=== PATIENT | male | born 1955 | race Caucasian/White ===

== ENCOUNTER 2017-02-03 12:47 | Inpatient (IN) | payer OTHER ==
[~2017-02-03] VITALS: Ht 185.4 cm; Wt 149.7 kg
[~2017-02-03 12:47] MED LIST: AUGMENTIN 875-1 EACH PO; COLCHICINE0.6 M2 PO; CRESTOR20 M2 PO; GLUCOPHAGE500 M1 PO; METOPROLOL TART50 M1 PO; NORCO 5-325 TA1 EACH PO; PERCOCET 5-3251 EACH PO; PREDNISONE20 M1 PO; VIBRAMYCIN100 MG PO; VICODIN 5-3001 EACH PO; XARELTO20 M2 PO
--- NOTE | 2017-02-03 12:51 | ED DYSPNEA/ASTHMA COMPLAINT ---
History of Present Illness General Chief Complaint: Dyspnea (COPD, CHF, Other) Stated Complaint: BIBA FOR SOB,WHEEZING Source: patient, family Exam Limitations: no limitations Vital Signs & Intake/Output Vital Signs & Intake/Output Vital Signs Date Time Temp Pulse Resp B/P B/P Pulse O2 O2 Flow FiO2 Mean Ox Delivery Rate 02/03 1412 73 22 184/119 97 BIPAP 30% 02/03 1358 75 98 02/03 1331 98 Nasal 3.0L Cannula 02/03 1257 96 Nasal 3.0L Cannula 02/03 1250 97.0 79 20 172/74 95 Nasal 3.0L Cannula Allergies Coded Allergies: No Known Allergies (01/15/16) Reconcile Medications Albuterol Sulfate (Proair Hfa) 90 MCG HFA.AER.AD 2 PUF INH Q4P PRN SHORTNESS OF BREATH (Reported) Colchicine 0.6 MG TABLET 1 TAB PO Q6-PRN PRN GOUT (Reported) Diltiazem HCl (Diltiazem 24HR ER) 240 MG CAP.ER.24H 1 CAP PO DAILY HEART ( Reported) Furosemide 20 MG TABLET 60 MG PO 7:30 AM, & 4:30 PM swelling Gabapentin 100 MG CAPSULE 2 CAP PO BID UNKNOWN (Reported) Guaifenesin 100 MG/5 ML LIQUID 10 ML PO Q4P PRN COUGH Lisinopril 20 MG TABLET 20 MG PO DAILY high blood pressure Metformin Hydochloride (Glucophage) 500 MG TABLET 1 TAB PO BID DIABETES ( Reported) Metoprolol Succinate 50 MG TAB.ER.24H 1 TAB PO DAILY HEART (Reported) Oxycodone HCl/Acetaminophen (Oxycodone-Acetaminophen 10-325) 10 MG-325 MG TABLET 1 TAB PO Q4P PRN PAIN (Reported) Prednisone 10 MG TABLET 1 TAB PO SEE ADMIN CRITERIA RESPIRATORY TAKE 4 TABLETS FOR 2 DAYS THEN 3 TABLEST FOR 3 DAYS THEN 2 TABLET FOR 3 DAYS THEN 1 TABLET FOR 3 DAYS, THEN STOP Rivaroxaban (Xarelto) 20 MG TABLET 1 TAB PO DAILY BLOOD THINNER (Reported) with food Rosuvastatin Calcium (Crestor) 20 MG TABLET 1 TAB PO DAILY CHOLESTEROL ( Reported) Sodium Chloride (Deep Sea) 0.65 % SPRAY 2 SPRAY MAURO Q4P PRN CONGESTION Triage Nurses Notes Reviewed? yes Onset: Gradual Duration: week(s): (1-2) Timing: recent history Severity: moderate, severe Associated Symptoms: LETHARGY, DYSPNEA, MUMBLED SPEECH HPI: 61 year old male with history of obesity, DM, HTN and afib presents from his doctor's office with his sister for difficulty breathing and wheezing. He was found to have an oxygen saturation in the low 80's. Patient deneis chest pain. His family reports increasing fatigue over the past several weeks, often nodding off very easily as well as a change in his speech. He has been non compliant with lasix because he feels too short of breath to get out of bed in the middle of jerilyn night to use the bathroom. Secondary to this he has also not followed up with his outpatient sleep testing. He was treated for pneumonia a month ago with a zpack and prednisone which he states did not really help. Past History Travel History Traveled to [place] past 21 day No Medical History Any Pertinent Medical History? see below for history Neurological: NONE EENT: NONE Cardiovascular: AFIB, hypertension, hyperlipidemia Respiratory: NONE Gastrointestinal: NONE Hepatic: NONE Renal: NONE Musculoskeletal: NONE Psychiatric: NONE Endocrine: DIABETIC Blood Disorders: NONE Cancer(s): NONE CHARGING OPERATOR/Reproductive: NONE Surgical History Surgical History: HARDWARE IN BOTH HIPS Psychosocial History What is your primary language Amharic Daily Tobacco Use Amount/Type: => 5 Cigarettes daily ETOH Use: denies use Illicit Drug Use: denies illicit drug use Family History Hx Contributory? No Review of Systems Review of Systems Constitutional: Denies: chills, fever. EENTM: Reports: no symptoms. Respiratory: Reports: cough, short of breath. Cardiovascular: Reports: peripheral edema. Denies: chest pain. GI: Denies: abdominal pain. Genitourinary: Reports: no symptoms. Musculoskeletal: Reports: no symptoms. Skin: Reports: no symptoms. Neurological/Psychological: Reports: see HPI (LETHARGU). Hematologic/Endocrine: Denies: bruising, bleeding, polyuria, polydipsia. Immunologic/Allergic: Denies: splenectomy. All Other Systems: Reviewed and Negative Physical Exam Physical Exam General Appearance: well developed/nourished, alert, awake, lethargic, mild distress, moderate distress, obese Head: atraumatic, normal appearance Eyes: Bilateral: normal appearance, PERRL, EOMI. Ears, Nose, Throat: normal pharynx, hearing grossly normal Neck: normal inspection Respiratory: decreased breath sounds, accessory muscle use, crackles Cardiovascular: irregularly irregular Peripheral Pulses: 2+ radial (R), 2+ radial (L) Gastrointestinal: normal bowel sounds, soft, non-tender, OBESE Extremities: swelling (3+ BILATERAL) Neurologic/Psych: no motor/sensory deficits, awake, alert Skin: warm/dry Core Measures ACS in differential dx? No Severe Sepsis Present: No Septic Shock Present: No Progress Differential Diagnosis: AMI, CHF, COPD, pulmonary embolism, pneumonia, cor pulmonale, sleep apnea, hypercarbia, fluid overload Plan of Care: Orders Procedure Date/time Status Heart Healthy Diet 02/03 D Active Pathway - chart 02/03 143 Active Admit to inpatient 02/03 143 Active Patient Data 02/03 1433 Active Vital Signs 02/03 143 Active Code Status 02/03 1433 Active Patient Data 02/03 1414 Active BIPAP 02/03 1358 Active [place], Insertion/Removal/Asses 02/03 1345 Active CULTURE,URINE 02/03 1345 Active EKG 02/03 1303 Active ARTERIAL BLOOD GAS (GEN) 02/03 1302 Complete RT ED ORDERS 02/03 1300 Active Telemetry/Cabinet Assembler 02/03 1300 Active TROPONIN LEVEL 02/03 1300 Complete PARTIAL THROMBOPLASTIN TIME 02/03 1300 Complete PROTHROMBIN TIME 02/03 1300 Complete COMPREHENSIVE METABOLIC PANEL 02/03 1300 Complete CBC WITHOUT DIFFERENTIAL 02/03 1300 Complete B-TYPE NATRIURETIC PEP (BNP) 02/03 1300 Complete Pathway - chart 02/03 UNK Active House Staff 02/03 UNK Active VTE Mechanical Prophylaxis 02/03 UNK Active Laboratory Tests 02/03/17 1315: pH 7.32 L, pCO2 66 *H, pO2 92, HCO3 33 H, ABG O2 Sat (Measured) 96.0, Carboxyhemoglobin 4.1, O2 Concentration % 6L, O2 Delivery Method NC, Phlebotomy Draw Site LEFT RADIAL 02/03/17 1300: Anion Gap 11, Estimated GFR > 60, BUN/Creatinine Ratio 27.5 H, Glucose 112 H, Calcium 8.7, Total Bilirubin 0.5, AST 22, ALT 30, Alkaline Phosphatase 52, Troponin I < 0.01, Mod-Z-Xoepwbzgyra Pept 1770 H, Total Protein 7.2, Albumin 4.1, Globulin 3.1, Albumin/Globulin Ratio 1.3, PT 15.4 H, INR 1.47 H, APTT 38 H, CBC w Diff NO MAN DIFF REQ, RBC 4.50 L, MCV 85.9, MCH 28.2, RDW 16.7 H, MPV 9.8, Gran % 70.6, Lymphocytes % 20.9, Monocytes % 6.8, Eosinophils % 1.2, Basophils % 0.5, Absolute Granulocytes 3.3, Absolute Lymphocytes 1.0 L, Absolute Monocytes 0.3, Absolute Eosinophils 0.1, Absolute Basophils 0, PUBS MCHC 32.8 L Microbiology 02/03 1417 URINE ROUT: Urine Culture - RECD EKG, TELE MONITOR, CXR. TRC/IV SOLUMEDROL ORDERED. LABS ORDERED. CXR CONSISTENT WITH FLUID OVERLOAD. IV LASIX ORDERED. NITROPASTE APPLIED. (CALVIN BRADSHAW,DAMIEN) Diagnostic Imaging: Viewed by Me: Radiology Read. Discussed w/RAD: Radiology Read. CXR Impression: PATIENT: KATH NEGRON PRESENT AGE: 61 PATIENT ACCOUNT NO: [id number] : 59 LOCATION: ER ORDERING PHYSICIAN: DAMIEN SIMPSON MD SERVICE DATE: 02/03/17 EXAM TYPE: RAD - XRY-PORTABLE CHEST XRAY EXAMINATION: XR PORTABLE CHEST CLINICAL INFORMATION: Hypoxia. COMPARISON: Chest done on 12/22/2016. TECHNIQUE: Portable frontal view (AP upright 70 degrees) of the chest was obtained. FINDINGS: The cardiomediastinal silhouette is moderately enlarged, given the difference in technique, however appears stable. There is evidence of pulmonary venous hypertension present. Low lung volume is present bilaterally. Ill-defined focal opacity is seen at right lower lung field, may represent subtle pneumonia however, evaluation is slightly technically limited due to motion related artifacts. There is no pleural effusion present. Evaluation of the abdomen is technically suboptimal due to underexposure. IMPRESSION: 1. Enlarged cardiomediastinal silhouette with mild pulmonary venous hypertension, consistent with mild CHF. 2. Possible artifacts versus airspace disease at right lower lung field. DICTATED BY: ROAS KERR MD DATE/TIME DICTATED:02/03/171333 STONECUTTER ASSISTANT:ADELAIDA DATE/ TIME TRANSCRIBED:02/03/171333 CONFIDENTIAL, DO NOT COPY WITHOUT APPROPRIATE AUTHORIZATION. <Electronically signed in Other Vendor System> SIGNED BY: ROSA KERR MD 02/03/17 1340 Initial ED EKG: AFIB Rhythm Strip: atrial fibrillation Departure Departure Time of Disposition: 1435 Disposition: STILL A PATIENT Condition: Stable Clinical Impression Primary Impression: CHF (congestive heart failure) Secondary Impressions: Hypercapnic respiratory failure Referrals: OLGA PATEL DO (PCP/Family) Departure Forms: Customer Survey General Discharge Information Prescriptions: Current Visit Scripts Lisinopril 20 MG PO DAILY #30 Guaifenesin 10 ML PO Q4P PRN COUGH 14 Days Sodium Chloride (Deep Sea) 2 SPRAY MAURO Q4P PRN CONGESTION 10 Days Furosemide 60 MG PO 7:30 AM, & 4:30 PM #28 Prednisone 1 TAB PO SEE ADMIN CRITERIA #26 TAB TAKE 4 TABLETS FOR 2 DAYS THEN 3 TABLEST FOR 3 DAYS THEN 2 TABLET FOR 3 DAYS THEN 1 TABLET FOR 3 DAYS, THEN STOP Admission Note Spoke With: CONSTANTINE RODRÍGUEZ MD Documentation of Exam: Documentation of any treatments & extenuating circumstances including Concerns Regarding Discharge (functional status, medication knowledge or non-compliance, living conditions, etc.) that warrant an admission rather than observation: [ TELE MOINTOR, BIPAP, LASIX, MONITOR I/O, CARDIOLOGY CONSULT, PULMONARY CONSULT, CONTINUE ANTIGOAGULATION AND RATE CONTROL] Critical Care Note Critical Care Note Critical Care Time: 30-74 min
--- NOTE | 2017-02-03 12:56 | NUR ---
61 YEAR OLD MALE BIBA FROM PCP OFFICE C/O SOB AND WHEEZING. PT WAS TREATED ONE MONTH AGO FOR PNEUMONIA WITH Z PACK AND PREDNISONE. PT REPORTS WORSENING OF SYMPTOMS THE PAST FEW DAYS. ARRIVES TO ED ALERT AND ORIENTED X3, EXPIRATORY WHEEZE NOTED THROUGH OUT LUNG IRVIN, OXYGEN 96% ON NC 3L. DR. SIMPSON TO BEDSIDE FOR EVAL.
--- NOTE | 2017-02-03 13:08 | NUR ---
RADIOLOGY TO BEDSIDE FOR DUONEB.
--- NOTE | 2017-02-03 13:08 | NUR ---
RT CALLED FOR LARA.
--- NOTE | 2017-02-03 13:16 | NUR ---
RT TO BEDSIDE FOR DUONEB AND ABG.
[2017-02-03 13:20] LABS: ABSOLUTE BASOPHIL COUNT 0 /CUMM (0.0-0.2); ABSOLUTE EOSINOPHIL COUNT 0.1 /CUMM (0.0-0.7); ABSOLUTE GRANULOCYTE CT 3.3 /CUMM (1.4-6.5); ABSOLUTE MONOCYTE COUNT 0.3 /CUMM (0.10-0.60); BASOPHIL % 0.5 % (0.0-2.0); EOSINOPHIL % 1.2 % (0-5); GRANULOCYTE % 70.6 % (42.2-75.2); HEMATOCRIT 38.7 % (42-52); MEAN CORPUSCULAR HGB 28.2 PG (27.0-31.0); MEAN CORPUSCULAR HGB CONC 32.8 G/DL (33.0-37.0); MEAN CORPUSCULAR VOLUME 85.9 FL (80.0-94.0); MEAN PLATELET VOLUME 9.8 FL (7.4-10.4); RBC DISTRIBUTION WIDTH 16.7 % (11.5-14.5); WHITE BLOOD CELL COUNT 4.6 /CUMM (4.8-10.8)
[2017-02-03 13:22] LABS: PLATELET COUNT 92 /CUMM (130-400)
[2017-02-03 13:24] LABS: PT 15.4 SEC (9.4-12.5); PTT 38 SEC (25-37)
--- NOTE | 2017-02-03 13:31 | NUR ---
PT MEDICATED WITH SOLUMEDROL PER EMAR. PT REPORTING HIP PAIN BUT IS FALLING ASLEEP BEFORE COMPLETING SENTENCES. PAIN MEDICATED HELD AT THIS TIME.
--- NOTE | 2017-02-03 13:40 | RADIOLOGY REPORT ---
EXAMINATION: XR PORTABLE CHEST CLINICAL INFORMATION: Hypoxia. COMPARISON: Chest done on 12/22/2016. TECHNIQUE: Portable frontal view (AP upright 70 degrees) of the chest was obtained. FINDINGS: The cardiomediastinal silhouette is moderately enlarged, given the difference in technique, however appears stable. There is evidence of pulmonary venous hypertension present. Low lung volume is present bilaterally. Ill-defined focal opacity is seen at right lower lung field, may represent subtle pneumonia however, evaluation is slightly technically limited due to motion related artifacts. There is no pleural effusion present. Evaluation of the abdomen is technically suboptimal due to underexposure. IMPRESSION: 1. Enlarged cardiomediastinal silhouette with mild pulmonary venous hypertension, consistent with mild CHF. 2. Possible artifacts versus airspace disease at right lower lung field.
[2017-02-03] MEDS ORDERED: COLCHICINE0.6 M2 PO (13:57)
[2017-02-03] MEDS ORDERED: DILTIAZEM 24HR240 MG PO (13:58)
[2017-02-03] MEDS ORDERED: FUROSEMIDE40 M1 PO (13:58)
[2017-02-03] MEDS ORDERED: GABAPENTIN100 M2 PO (13:59)
[2017-02-03] MEDS ORDERED: LISINOPRIL5 M1 PO (13:59)
[2017-02-03] MEDS ORDERED: METOPROLOL SUCC50 M2 PO (14:00)
[2017-02-03] MEDS ORDERED: PROAIR HFA8.5 GM INH (14:01)
[2017-02-03] MEDS ORDERED: OXYCODONE-ACET1 EAC1 PO (14:01)
--- NOTE | 2017-02-03 14:13 | NUR ---
PT PLACED ON BIPAP. ETIENNE PLACED WITH NO DIFFICULTY. MEDICATED WITH LASIX 20MG IV PER EMAR.
--- NOTE | 2017-02-03 14:25 | NUR ---
URINE TRIO SENT.
--- NOTE | 2017-02-03 14:58 | NUR ---
[facility] ASSIGNMENT [phone]
--- NOTE | 2017-02-03 15:39 | NUR ---
HOUSE STAFF TO BEDSIDE FOR EVALUATION. NITRO PAST APPLIED PER EMAR TO LCW.
--- NOTE | 2017-02-03 15:49 | History & Physical ---
MCKENZIE MULTANI 02/03/17 1549: General Information and HPI MD Statement: I have seen and personally examined KATH NEGRON and documented this H&P. The patient is a 61 year old M who presented with a patient stated chief complaint of Source of Information: patient, family, old records Exam Limitations: unable to give history, physical impairment History of Present Illness: Mr Negron is a 61 yr old man who was known to be in his usual state of health until 6 wks ago. She has a past medical history of atrial fibrillation ( on NOAC ), hypertension, obstructive sleep apnea( formal sleep study not done ), obesity, gout, diabetes. He was brought to [facility] after his PCP advised him to be evaluated for hypoxemia. As per the patient, and his family who was present at the bedside, Mr. Negron has been having chest discomfort 6 weeks, largely attributed to upper respiratory tract infection. Also complained of wheezing, and was then treated with azithromycin and prednisone, with minimal relief. No fever. Reported occasional cough, associated with mucoid sputum. Reported worsening shortness of breath, progressed from being short of breath doing daily chores to being short of breath at rest. Reported orthopnea. Also reported increased use of narcotics/opiate medications for controlling hip pain. Reported worsening pedal edema 2 weeks. No chest pain, palpitations, abdominal discomfort, neurological symptoms. Active smoker, [id number] history, occasional alcohol use reported. Has been seeing Dr Patel, as his PCP. Allergies/Medications Allergies: Coded Allergies: No Known Allergies (01/15/16) Home Med list Albuterol Sulfate (Proair Hfa) 90 MCG HFA.AER.AD 2 PUF INH Q4P PRN SHORTNESS OF BREATH (Reported) Colchicine 0.6 MG TABLET 1 TAB PO Q6-PRN PRN GOUT (Reported) Diltiazem HCl (Diltiazem 24HR ER) 240 MG CAP.ER.24H 1 CAP PO DAILY HEART ( Reported) Furosemide 40 MG TABLET 1 TAB PO DAILY WATER RETENTION (Reported) Gabapentin 100 MG CAPSULE 2 CAP PO BID UNKNOWN (Reported) Lisinopril 5 MG TABLET 1 TAB PO DAILY HEART (Reported) Metformin Hydochloride (Glucophage) 500 MG TABLET 1 TAB PO BID DIABETES ( Reported) Metoprolol Succinate 50 MG TAB.ER.24H 1 TAB PO DAILY HEART (Reported) Oxycodone HCl/Acetaminophen (Oxycodone-Acetaminophen 10-325) 10 MG-325 MG TABLET 1 TAB PO Q4P PRN PAIN (Reported) Rivaroxaban (Xarelto) 20 MG TABLET 1 TAB PO DAILY BLOOD THINNER (Reported) with food Rosuvastatin Calcium (Crestor) 20 MG TABLET 1 TAB PO DAILY CHOLESTEROL ( Reported) Compliance With Home Meds: FAIR Past History Travel History Traveled to [place] past 21 day No Medical History Neurological: NONE EENT: NONE Cardiovascular: AFIB, hypertension, hyperlipidemia Respiratory: NONE Gastrointestinal: NONE Hepatic: NONE Renal: NONE Musculoskeletal: NONE Psychiatric: NONE Endocrine: DIABETIC Blood Disorders: NONE Cancer(s): NONE HOSPICE ART THERAPIST/Reproductive: NONE Surgical History Surgical History: HARDWARE IN BOTH HIPS Past Family/Social History Psychosocial History ETOH Use: denies use Illicit Drug Use: denies illicit drug use Review of Systems Review of Systems Constitutional: Reports: see HPI. Denies: chills, diaphoresis, fever. EENTM: Denies: blurred vision. Cardiovascular: Reports: edema, orthopena. Denies: chest pain, palpitations, syncope. Respiratory: Reports: cough, short of breath. GI: Denies: abdominal pain, diarrhea. Genitourinary: Denies: frequency. Musculoskeletal: Reports: gout, joint pain. Skin: Denies: cysts. Neurological/Psychological: Reports: anxiety, depressed. Exam & Diagnostic Data Last 24 Hrs of Vital Signs/I&O Vital Signs Date Time Temp Pulse Resp B/P B/P Pulse O2 O2 Flow FiO2 Mean Ox Delivery Rate 02/03 1741 96.1 94 22 151/80 91 BIPAP 02/03 1704 96 02/03 1638 97.2 76 22 174/84 95 BIPAP 30% 05/05 1604 77 22 190/88 95 BIPAP 30% 05/05 1538 86 22 184/97 95 BIPAP 30% 05/05 1507 97.2 73 22 182/97 96 BIPAP 30% 05/05 1412 73 22 184/119 97 BIPAP 30% 05/05 1358 75 98 05/05 1331 98 Nasal 3.0L Cannula 02/03 1257 96 Nasal 3.0L Cannula 02/03 1250 97.0 79 20 172/74 95 Nasal 3.0L Cannula Intake & Output 02/03 1600 05 0800 05 0000 Intake Total Output Total 1475 Balance -1475 Output, Urine 1475 Patient 335 lb Weight Weight Reported by Patient Measurement Method Physical Exam General Appearance Alert, Oriented X3, Cooperative, No Acute Distress Skin No Rashes, No Breakdown, No Significant Lesion Skin Temp/Moisture Exam: Warm/Dry Sepsis Skin Exam (color): Normal for Ethnicity HEENT Atraumatic, PERRLA, EOMI Neck Supple, No JVD, No thryomegaly, +2 Carotid Pulse wo Bruit Lymphatic Cervical nl Cardiovascular Regular Rate, Normal S1, Normal S2 Lungs Normal Air Movement, wheezing b/l Abdomen Normal Bowel Sounds, Soft, No Tenderness, No Hepatospenomegaly Neurological Normal Speech, Strength at 5/5 X4 Ext, Normal Tone, Sensation Intact, Cranial Nerves 3-12 NL, Reflexes 2+ Extremities No Clubbing, No Cyanosis, Normal Pulses, pedal edema Vascular Pulses Symmetrical Last 24 Hrs of Labs/Satish: Laboratory Tests 02/03/17 2100: pH 7.40, pCO2 56 H, pO2 63 L, HCO3 34 H, ABG O2 Sat (Measured) 89.0 L, Carboxyhemoglobin 2.6, O2 Concentration % 305, Temperature 98.6, Respiration Rate 20, O2 Delivery Method BIPAP, Vent Mode ST, Expiratory Pressure 8, Inspiratory Pressure 18, Phlebotomy Draw Site RIGHT RADIAL 02/03/173: Troponin I Pending 02/03/17 1315: pH 7.32 L, pCO2 66 *H, pO2 92, HCO3 33 H, ABG O2 Sat (Measured) 96.0, Carboxyhemoglobin 4.1, O2 Concentration % 6L, O2 Delivery Method NC, Phlebotomy Draw Site LEFT RADIAL 02/03/17 1300: Anion Gap 11, Estimated GFR > 60, BUN/Creatinine Ratio 27.5 H, Glucose 112 H, Calcium 8.7, Total Bilirubin 0.5, AST 22, ALT 30, Alkaline Phosphatase 52, Troponin I < 0.01, Ipf-O-Hpleitruuly Pept 1770 H, Total Protein 7.2, Albumin 4.1, Globulin 3.1, Albumin/Globulin Ratio 1.3, Vitamin B12 281, Folate 12.0, PT 15.4 H, INR 1.47 H, APTT 38 H, CBC w Diff NO MAN DIFF REQ, RBC 4.50 L, MCV 85.9, MCH 28.2, RDW 16.7 H, MPV 9.8, Gran % 70.6, Lymphocytes % 20.9, Monocytes % 6.8, Eosinophils % 1.2, Basophils % 0.5, Absolute Granulocytes 3.3, Absolute Lymphocytes 1.0 L, Absolute Monocytes 0.3, Absolute Eosinophils 0.1, Absolute Basophils 0, PUBS MCHC 32.8 L Microbiology 02/03 1626 URINE ROUT: Legionella Antigen - COLB 02/03 162 URINE ROUT: Streptococcus pneumoniae Antigen (M - COLB 02/03 162 NASOPHARYN: Influenza Virus A & B Rapid Smear - COLB 02/03 1417 URINE ROUT: Urine Culture - RECD Diagnostic Data EKG Results Atrial fibrillation, heart rate 67, no ST-T wave changes. CXR Results 1. Enlarged cardiomediastinal silhouette with mild pulmonary venous hypertension , consistent with mild CHF. 2. Possible artifacts versus airspace disease at right lower lung field. Assessment/Plan Assessment: He is a middle-aged man with a past history of atrial fibrillation, diabetes, obesity, obesity hypoventilation syndrome is being evaluated for worsening shortness of breath, hypoxemia. At the time of admission, vitals-temperature 90.7, pulse rate 79, respiratory rate of 20, blood pressure 172/74, 95% on 3 L (patient does not use any home oxygen). Lab findings indicated WBC 4.6, hemoglobin 12.7 (baseline 14), platelets 92 (baseline 111, very low-reason unclear), normal electrolytes sodium 143, potassium 4.9, bicarbonate 33 (high-likely metabolic compensation for chronic respiratory acidosis), normal renal function BUN 22, serum creatinine 0.8. ProBNP slightly elevated 1770, INR 1.47, blood gas-pH 7.32, PCO2 66. HbA1c 4.9 (2016) Chest x-ray revealed findings consistent with mild CHF. Last echocardiogram done on 01/16/2017 revealed left ventricle ejection fraction of 65%, right ventricular pressure 28%. Differential diagnosis: #1 hypoventilation syndrome #2 CHF #3 COPD #4 opiate Overuse Below is the problem list and plan: #1 hypoxemia, shortness of breath-likely multifactorial likely hypoventilation syndrome from obesity, CHF, and opiate use. Continue the patient on BiPAP and recheck ABG for resolution of abnormal PCO2. CHF likely contributing to symptoms. Continue IV furosemide for now. Pulmonary consult in the a.m. Check echocardiogram. Also check TSH, free T4, that could worsen CHF. Continue IV Solu-Medrol. TRC, albuterol/ipratropium as needed. #2 kguehioo-Ragq-Ayqwc. Continue NovoLog sliding scale. #3 atrial fibrillation-continue Xarelto and Cardizem.. Check serial troponin, EKG. Monitor the patient on telemetry. Dr. Cevallos advising. #4 hypertension-lisinopril. Monitor the patient closely. #5 anemia, thrombocytopenia- likely nutritional. Other causes have to be ruled out. No history of heavy alcohol use. Check iron studies, vitamin B12. As Ranked By This Provider Problem List: 1. Hypercapnic respiratory failure 2. CHF (congestive heart failure) Core Measures/Miscellaneous Acute Coronary Syndrome ACS Diagnosis: No Cerebrovascular Accident CVA/TIA Diagnosis: No Congestive Heart Failure CHF Diagnosis: No Venous Thromboembolism VTE Risk Factors: Acute medical illness, Age > 40 [facility] d/t: No contraindications No VTE Pharm Prophylaxis d/t: No contraindications VTE Diagnosis: No VTE Type: NONE VTE Confirmed by (Test): NONE Severe Sepsis Severe Sepsis Present: No Septic Shock Septic Shock Present: No Miscellaneous Documentation Attending Case Discussed With: CONSTANTINE RODRÍGUEZ MD Primary Care Physician: OLGA PATEL DO Patient sees these Specialists none Level of Patient Care: Telemetry AUBREY JACINTO 02/03/17 1610: Resident Review Statement Resident Statement: examined this patient, discussed with research program intern, agreed with research program intern, amended to note Other Findings: 61-year-old man with past medical history of morbid obesity, A. fib on anti- corroboration, gout, possible YULIA, hypertension, diabetes, hyperlipidemiam osteoarthritis with chronic pain came to the hospital from the PCP office is chief complaint of drowsiness and low O2 saturation. Most of the information was obtained from patient's sister since the patient was on BiPAP. Patient has very bad hip osteoarthritis which made him to start smoking again and taking narcotics for pain control for about 3 months. She reports that patient has been came in chronic dry cough and chest cold? For about a month she did not respond to Z-Mao. Patient recently has an echocardiogram and chest x-ray showed normal ejection fraction with no diastolic dysfunction. Patient also has shortness of breath on exertion and increased leg swelling. Patient denies any chest pain, headache, nausea, vomiting, constipation, diarrhea, recent sick contacts. Upon opening the patient was improved on BiPAP 30%, pressure 180/110, RR 22, O2 saturation 92%, temperature within normal limit, pulse 75 Notable labs, ABG pH 7.32, PCO2 66, HCO3 33 BUN 33, BNP 1770, Hg 12.5, and platelets 92 Physical exam Alert and oriented 3 HEENT Atraumatic, PERRLA, EOMI Cardiovascular Regular Rate, Normal S1, Normal S2 Lungs decreased breath sounds, limited exams, expiratory wheezing Abdomen morbidly obese, and no abdominal tenderness, abdominal distention, normal bowel sounds Extremities No Clubbing, No Cyanosis, No Edema,Normal Pulses CXR: 1. Enlarged cardiomediastinal silhouette with mild pulmonary venous hypertension, consistent with mild CHF. 2. Possible artifacts versus airspace disease at right lower lung field. Assessment and plan #acute respiratory failure COPD vs CHF vs combination -Continue BiPAP -Check Legionella, strep, flu -PULM consult in the morning -solu medrol 40 mg q6 - TRC nebs -Daily weights -Intake & output -Iv lasix 40 daily -cardiology consult -we can check ABG one more time #diabetes -diabetic diet, sliding scale insulin #HLP -Continue statin #Hypertension/afib -continue home medication, patient got nitro paste -Continue Xarelto,diltiazim,metroporol, lisinopril #pancytopenia -We'll watch with daily CBC, watch for bleeding -Check B12 and folate Full code, diabetic diet, DVT prophylaxis is a mechanicl and xarelto MARCOS BRADSHAW,NOHELIA 02/04/171958: Attending MD Review Statement Attending Statement Attending MD Statement: examined this patient, discuss w/resident/PA/PESTICIDE USE MEDICAL COORDINATOR, agreed w/resident/PA/PESTICIDE USE MEDICAL COORDINATOR, reviewed EMR data (avail) Attending Assessment/Plan: 61M PMH atrial fibrillation on Xarelto, hypertension, obstructive sleep apnea( formal sleep study not done ), morbid obesity, T2DM, right hip osteoarthritis presenting with lethargy, dyspnea/apnea and acute hypercapnic respiratory failure with CO2 narcosis. Patient has a history of YULIA but not yet formally diagnosed and not on CPAP. He takes Oxycodone for his chronic back and hip pain. He had an upper respiratory illness in the few days prior to admission. Afebrile, hemodynamically stable, requiring 3L NC, CXR showing mild CHF. 1. Acute hypoxic and hypercapnic respiratory failure 2. CO2 narcosis 3. YULIA 4. Acute exacerbation of COPD 5. Acute on chronic diastolic CHF 6. Chronic lower back and right hip pain 7. Morbid obesity 8. Paroxysmal atrial fibrillation Plan - Admit to telemetry - Lasix 60mg IV BID - Solumedrol 40mg q8h - TRC/nebulizer treatment - BiPAP PRN - Titrate down oxygen as tolerated - Serial troponin and EKG - Cardiology and pulmonary consults - Continue home medications - Avoid narcotics - DVT PPx
--- NOTE | 2017-02-03 15:58 | PN- Student ---
Subjective Subjective: CC: BIBA from PCP for hypoxemia Source: patient (unable to give clear history), sister, medical record HPI: Pt is a 61yo male with complicated PMH significant for morbid obesity, afib , suspected YULIA, HTN, smoking, diabetes, gout, and severe osteoarthritis of the L hip. Pt presents to the ED from his PCP for hypoxemia. Sister is at the bedside. Sister states pt has had "chest cold" for the past few weeks, treated unsuccessfully with Z-pack, but denies pneumonia. Pt did not feel well this morning and went to see PCP. In the office, pt had diffuculty remaining alert, and was found to be hypoxic. Pt denies CP. +SOB/dyspnea/+cough productive of clear sputum/+peripheral edema. Denies LOC/confusion. Denies changes to appetite /PO intake. In the ED, ABG/labs drawn. He was placed on 30% BiPap and SpO2 was 95%. When he removed his mask to answer some questions, he desaturated down to 87% on RA. 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 Since that time, pt has started smoking and taking prescription [facility] Pt states he is compliant with medications. Pt deferred sleep study for frequent nocturia. Pt was admitted to telemetry from the ED for respiratory failure vs. CHF in the setting of morbid obesity and suspected YULIA. Allergies: NKDA Home Medications: Albuterol Sulfate (Proair Hfa) 90 MCG HFA.AER.AD 2 PUF INH Q4P PRN SHORTNESS OF BREATH (Reported) Colchicine 0.6 MG TABLET 1 TAB PO Q6-PRN PRN GOUT (Reported) Diltiazem HCl (Diltiazem 24HR ER) 240 MG CAP.ER.24H 1 CAP PO DAILY HEART ( Reported) Furosemide 40 MG TABLET 1 TAB PO DAILY WATER RETENTION (Reported) Gabapentin 100 MG CAPSULE 2 CAP PO BID UNKNOWN (Reported) Lisinopril 5 MG TABLET 1 TAB PO DAILY HEART (Reported) Metformin Hydochloride (Glucophage) 500 MG TABLET 1 TAB PO BID DIABETES ( Reported) Metoprolol Succinate 50 MG TAB.ER.24H 1 TAB PO DAILY HEART (Reported) Oxycodone HCl/Acetaminophen (Oxycodone-Acetaminophen 10-325) 10 MG-325 MG TABLET 1 TAB PO Q4P PRN PAIN (Reported) Rivaroxaban (Xarelto) 20 MG TABLET 1 TAB PO DAILY BLOOD THINNER (Reported) with food Rosuvastatin Calcium (Crestor) 20 MG TABLET 1 TAB PO DAILY CHOLESTEROL ( Reported) Past Medical History Cardiovascular: AFIB, hypertension, hyperlipidemia Gastrointestinal: 09/2016 BRBPR, colonoscopy/polypectomy Musculoskeletal: see surgical history Endocrine: diabetes Surgical History BL hip - pins placed and removed in childhood R femur fracture - plate and pins as teenager 09/2016 Colonoscopy and polypectomy for BRBPR, benign Psychosocial History What is your primary language Namibian Daily Tobacco Use Amount/Type: 0.5 pack perday x3 months, also past smoking history of a "few" cigarettes/day. 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 Per sister, recently had to give up his company as it became too difficult and painful for him to walk. Family History Mother - 63yo s/p CO Father - DM, 65yo, s/p CO Sister x2 - "fair health" Grandparents - "cancer in their 90s" Objective Objective: Physical Exam: Vital Signs Date Time Temp Pulse Resp B/P B/P Pulse O2 O2 Flow FiO2 Mean Ox Delivery Rate 02/03 1638 97.2 76 22 174/84 95 BIPAP 30% 02/03 1604 77 22 190/88 95 BIPAP 30% 02/03 1538 86 22 184/97 95 BIPAP 30% 02/03 1507 97.2 73 22 182/97 96 BIPAP 30% 02/03 1412 73 22 184/119 97 BIPAP 30% 02/03 1358 75 98 02/03 1331 98 Nasal 3.0L Cannula 02/03 1257 96 Nasal 3.0L Cannula 02/03 1250 97.0 79 20 172/74 95 Nasal 3.0L Cannula Gen: limited exam, obese older male lying in bed with BiPAP mask CV: S1S2, regular rate, irregular rhythm Lungs: on 30% BiPAP, CTA, limited inspiratory effort, pt did not wake for exam Abd: obese abdomen, quiet Skin: warm, dry, well perfused Ext: peripheral LE edema Results Results: Laboratory Tests 02/03/17 1315: pH 7.32 L, pCO2 66 *H, pO2 92, HCO3 33 H, ABG O2 Sat (Measured) 96.0, Carboxyhemoglobin 4.1, O2 Concentration % 6L, O2 Delivery Method NC, Phlebotomy Draw Site LEFT RADIAL 02/03/17 1300: Anion Gap 11, Estimated GFR > 60, BUN/Creatinine Ratio 27.5 H, Glucose 112 H, Calcium 8.7, Total Bilirubin 0.5, AST 22, ALT 30, Alkaline Phosphatase 52, Troponin I < 0.01, Div-P-Ulzvmykhjzk Pept 1770 H, Total Protein 7.2, Albumin 4.1, Globulin 3.1, Albumin/Globulin Ratio 1.3, PT 15.4 H, INR 1.47 H, APTT 38 H, CBC w Diff NO MAN DIFF REQ, RBC 4.50 L, MCV 85.9, MCH 28.2, RDW 16.7 H, MPV 9.8, Gran % 70.6, Lymphocytes % 20.9, Monocytes % 6.8, Eosinophils % 1.2, Basophils % 0.5, Absolute Granulocytes 3.3, Absolute Lymphocytes 1.0 L, Absolute Monocytes 0.3, Absolute Eosinophils 0.1, Absolute Basophils 0, PUBS MCHC 32.8 L Microbiology 02/03 162 URINE ROUT: Legionella Antigen - COLB 02/03 162 URINE ROUT: Streptococcus pneumoniae Antigen (M - COLB 02/03 162 NASOPHARYN: Influenza Virus A & B Rapid Smear - COLB 02/03 1417 URINE ROUT: Urine Culture - RECD EXAM TYPE: RAD - XRY-PORTABLE CHEST XRAY CLINICAL INFORMATION: Hypoxia. COMPARISON: Chest done on 12/22/2016. TECHNIQUE: Portable frontal view (AP upright 70 degrees) of the chest was obtained. FINDINGS: The cardiomediastinal silhouette is moderately enlarged, given the difference in technique, however appears stable. There is evidence of pulmonary venous hypertension present. Low lung volume is present bilaterally. Ill-defined focal opacity is seen at right lower lung field, may represent subtle pneumonia however, evaluation is slightly technically limited due to motion related artifacts. There is no pleural effusion present. Evaluation of the abdomen is technically suboptimal due to underexposure. IMPRESSION: 1. Enlarged cardiomediastinal silhouette with mild pulmonary venous hypertension, consistent with mild CHF. 2. Possible artifacts versus airspace disease at right lower lung field. 01/16/17/ ECHOCARDIOGRAM CONCLUSIONS Moderate concentric left ventricular hypertrophy. Normal left ventricular ejection fraction visually estimated at >65 Mild to moderate left atrial dilatation. Mild thickening/calcification of the mitral valve leaflets. Mild mitral annular calcification. Mild mitral regurgitation. Focal thickening of the aortic valve cusps. No aortic stenosis. Pulmonary artery systolic pressure is normal. The aortic root and ascending aorta are mildly dilated. Assessment/Plan Assessment: Pt is a 61yo male with complicated PMH significant for morbid obesity, afib, suspected YULIA, HTN, smoking, diabetes, severe osteoarthritis of the L hip, and gout was admitted from the ED with acute respiratory failure vs. CHF and volume overload. Differential diagnosis includes COPD, CHF, obesity hypoventilation syndrome, untreated sleep apnea, hypercapnia 2/2 to narcotics vs a combination. Pt was admitted to telemetry for monitoring of afib, hypoxemia, HTN, volume overload, and anemia/pancytopenia. Pt has recent history of "URI" symptomatic after Z-daisy course. Pt has cough productive of clear sputum which can be associated with CHF. BNP was elevated to 1770 in the ED. Though this is a nonspecific test, Echo from 01/16/17 demonstrates "moderate concentric left ventricular hypertrophy. Normal left ventricular ejection fraction visually estimated at >65%." Some mild valvular disease of the mitral valve and aortic valve was also noted on echo. This pt's HTN, obesity, valvular heart disease and anemia are all contributing factors to heart failure. CXR performed in the ED is suggestive of CHF. Anemia and MR both contribute to HFpEF. Pt is also anemic trending down from previous labs. Chronic anemia is a contributing factor for HFpEF. He also has a recent history of GI bleeding and polypectomy. Differential diagnosis includes COPD chronic bronchitis type. Pt has intermittent smoking history estimated at 20 pack years. Per sister, pt smokes a "few" cigarettes her day. Occupational exposure history significant for working in a [employer]working/[employer] business for 23 years. Though pt states he took appropriate percautions, this possible occupational exposure to particles, in addition to his smoking history, could be a risk factor for COPD. Pt's body habitus contributes to possible obesity hypoventilation syndrome which would prevent him from blowing off sufficient CO2. His body habitus also puts him at risk for YULIA, which is suspected by his PCP. Sleep study has been ordered in the past, but pt has not followed through due to frequent night wakings to urinate. The most recent change to the pt's health status has been the addition of narcotics for chronic pain treatment. In the setting of this patient's existing conditions and additional risk factors, his tolerance for the respiratory drive suppressant effects may have not have been sufficient to avoid hypoxemia/ hypercapnia. Plan: Cardiology/Pulm: -Continue on BiPAP, wean as tolerated -repeat ABG/labs -diuresis for peripheral edema -evaluate medication list -evaluate probably causes of anemia -monitor H/H -consider stool guaiac -pt states recent colonoscopy [facility] - obtain records -avoid narcotics Other considerations: -continue home medications -diet as tolerated -monitor urine output and d/c burt PCP: Dr. Frias Full Code Full Code
--- NOTE | 2017-02-03 16:04 | NUR ---
RN TO CALL BACK FOR REPORT.
--- NOTE | 2017-02-03 16:39 | NUR ---
REPORT GIVEN TO EDWIN VELAZQUEZ RN REQUESTING HOUSE STAFF BE PAGED REGARDING BP 174/84. THIS RN SPOKE WITH DR. OLEA REGARDING BP, REQUESTING TO WAIT AND EVALUATE PT UPSTAIRS. [facility] CALLED FOR PT TRANSPORT.
[2017-02-03 17:41] VITALS: BP 151/80
--- NOTE | 2017-02-03 20:17 | NUR ---
PT ADMITTED FROM ER DROWSY AND AROUSABLE ON BIPAP VSS CALL LIGHT IN REACH FLOWY PATENT
--- NOTE | 2017-02-03 21:19 | Cons- Cardiology ---
General Information and HPI Consulting Request Date of Consult: 02/03/17 Requested By: CONSTANTINE RODRÍGUEZ MD History of Present Illness: This patient is a 61 year old male with history of morbid obesity, YULIA, hypertension, dyslipidemia, diabetes and atrial fibrillation. Over the past several days this patient has had progression of his shortness of breath along with orthopnea. Bilateral leg swelling is also noted. He has a cough productive of clear to white sputum but he denies fever or chills. He has had drowsiness and was found to have low oxygen saturation. It should be noted that this patient has been taking narcotics for control of is arthritic pain for the past three months. The patient otherwise is free of chest pain, pressure, tightness, lightheadedness or palpitations. Cardiac workup has included a recent echocardiogram showing a normal EF with moderate left ventricular hypertrophy. Allergies/Medications Allergies: Coded Allergies: No Known Allergies (01/15/16) Home Med List: Albuterol Sulfate (Proair Hfa) 90 MCG HFA.AER.AD 2 PUF INH Q4P PRN SHORTNESS OF BREATH (Reported) Colchicine 0.6 MG TABLET 1 TAB PO Q6-PRN PRN GOUT (Reported) Diltiazem HCl (Diltiazem 24HR ER) 240 MG CAP.ER.24H 1 CAP PO DAILY HEART ( Reported) Furosemide 40 MG TABLET 1 TAB PO DAILY WATER RETENTION (Reported) Gabapentin 100 MG CAPSULE 2 CAP PO BID UNKNOWN (Reported) Lisinopril 5 MG TABLET 1 TAB PO DAILY HEART (Reported) Metformin Hydochloride (Glucophage) 500 MG TABLET 1 TAB PO BID DIABETES ( Reported) Metoprolol Succinate 50 MG TAB.ER.24H 1 TAB PO DAILY HEART (Reported) Oxycodone HCl/Acetaminophen (Oxycodone-Acetaminophen 10-325) 10 MG-325 MG TABLET 1 TAB PO Q4P PRN PAIN (Reported) Rivaroxaban (Xarelto) 20 MG TABLET 1 TAB PO DAILY BLOOD THINNER (Reported) with food Rosuvastatin Calcium (Crestor) 20 MG TABLET 1 TAB PO DAILY CHOLESTEROL ( Reported) Past History Travel History Traveled to [place] past 21 day No Medical History Blood Transfusion Hx: No Neurological: NONE EENT: NONE Cardiovascular: AFIB, hypertension, hyperlipidemia Respiratory: NONE Gastrointestinal: NONE Hepatic: NONE Renal: NONE Musculoskeletal: NONE Psychiatric: NONE Endocrine: DIABETIC Blood Disorders: NONE Cancer(s): NONE 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 Home Services at Home: None Smoking Status: Current Everyday Smoker ETOH Use: denies use Illicit Drug Use: denies illicit drug use Exam & Diagnostic Data Vital Signs and I&O Vital Signs Date Time Temp Pulse Resp B/P B/P Pulse O2 O2 Flow FiO2 Mean Ox Delivery Rate 02/03 1741 96.1 94 22 151/80 91 BIPAP 05/05 1704 96 05/05 1638 97.2 76 22 174/84 95 BIPAP 30% 05/05 1604 77 22 190/88 95 BIPAP 30% 05/05 1538 86 22 184/97 95 BIPAP 30% 05/05 1507 97.2 73 22 182/97 96 BIPAP 30% 05/05 1412 73 22 184/119 97 BIPAP 30% 05/05 1358 75 98 05/05 1331 98 Nasal 3.0L Cannula 02/03 1257 96 Nasal 3.0L Cannula 02/03 1250 97.0 79 20 172/74 95 Nasal 3.0L Cannula Intake & Output 05 1600 05/05 0800 05/05 0000 05/04 1600 05/04 0800 05/04 0000 Intake Total Output Total 1475 Balance -1475 Output, Urine 1475 Patient 335 lb Weight Weight Reported by Patient Measurement Method Physical Exam: General: WD/ obese male in NAD; alert and oriented x 3 HEENT: NC/ AT, PERRL, EOMI Neck: obese, no obvious JVD, no carotid bruit Heart: irregularly irregular w/o mumur Lungs: clear anteriorly bilaterally Abdomen: soft, Obese, NT, +ve bowel sounds Extremities: 1+ LE edema Assessment/Plan Assessment/Plan * This patient had an hypoxic encephalopathy related almost certainly related to severe obstructive sleep apnea. This condition was exacerbated beyond baseline due to the patients recent narcotic use which has made the patient more somnolent. In the setting of this hypoxia, the patient also developed mild decompensated CHF that has led to the clear sputum of a cardiac cough. This patient needs CPAP along with weight loss. * Diurese with Lasix 60mg IV BID while following his BUN, creatinine and potassium. * Continue Xarelto for stroke prophylaxis and cardizem for rate control. * Increase Lisinopril to 20mg daily and raise as needed to obtain a normal BP. This patient does have LVH likely related to his hypertension and in the setting of diabetes should be maximized on an ACEI. Consult Acknowledgment - Thank you for your consult request.
[2017-02-04 00:19] VITALS: BP 164/100
[2017-02-04 01:20] VITALS: BP 158/86
--- NOTE | 2017-02-04 05:18 | PN- Housestaff ---
AUBREY JACINTO 02/04/17 0518: Subjective Follow-up For: Acute respiratory failure, diabetes Hip pain Tele-Events Since Last Visit: AFIB, 91-108, TRIPLETS Subjective: I have seen and examined the patient. Patient is feeling better today and he is on 2 L oxygen. Patient is hungry and wants to eat. Vital signs are stable. Patient complains of hip pain we will tweak his medication for giving very low- dose Percocet.on ETIENNE Review of Systems Constitutional: Reports: see HPI. Objective Last 24 Hrs of Vital Signs/I&O Vital Signs Date Time Temp Pulse Resp B/P B/P Pulse O2 O2 Flow FiO2 Mean Ox Delivery Rate 02/04 0120 89 158/86 05/ 0053 92 93 / 0019 98.9 93 20 164/100 91 Nasal 2.0L Cannula 02/03 2152 BIPAP 35% 02/03 2105 81 94 / 2000 BIPAP 35% 02/03 1741 96.1 94 22 151/80 91 BIPAP 05/ 1704 96 05/05 1638 97.2 76 22 174/84 95 BIPAP 30% 05/05 1604 77 22 190/88 95 BIPAP 30% 05/05 1538 86 22 184/97 95 BIPAP 30% 05/05 1507 97.2 73 22 182/97 96 BIPAP 30% 05/05 1412 73 22 184/119 97 BIPAP 30% 05/05 1358 75 98 05/05 1331 98 Nasal 3.0L Cannula 02/03 1257 96 Nasal 3.0L Cannula 02/03 1250 97.0 79 20 172/74 95 Nasal 3.0L Cannula Intake & Output 02/04 0800 05/06 0000 05/05 1600 Intake Total 500 100 Output Total 750 2750 1475 Balance -250 -2650 -1475 Intake, IV 100 0 Intake, Oral 400 100 Number 0 0 Bowel Movements Output, Urine 750 2750 1475 Patient 353 lb 335 lb Weight Weight Rosanna Lift Reported by Patient Measurement Method Physical Exam General Appearance: Alert, Oriented X3, Cooperative, No Acute Distress Other Physical Findings: HEENT Atraumatic, PERRLA, EOMI Neck Supple, No JVD, No thryomegaly, +2 Carotid Pulse wo Bruit Lymphatic Cervical nl Cardiovascular Regular Rate, Normal S1, Normal S2 Lungs Normal Air Movement, wheezing b/l Abdomen Normal Bowel Sounds, Soft, No Tenderness, No Hepatospenomegaly Neurological Normal Speech, Strength at 5/5 X4 Ext, Normal Tone, Sensation Intact, Cranial Nerves 3-12 NL, Reflexes 2+ Extremities No Clubbing, No Cyanosis, Normal Pulses, pedal edema Current Medications: Current Medications Sig/Kendra Start time Last Medication Dose Route Stop Time Status Admin Acetaminophen 1,000 MG Q8P PRN 02/03 1615 AC 02/04 N/A 1 UNIT IV 0555 Albuterol Sulfate 3 ML Q4-PRN PRN 02/03 2215 AC INH Albuterol Sulfate 3 ML ONCE ONE 02/03 1300 DC 02/03 INH 02/03 1301 1357 Colchicine 600 MCG Q6-PRN PRN 02/03 1600 DC PO Diltiazem HCl 240 MG DAILY 02/04 1000 AC PO Furosemide 40 MG DAILY 02/04 1000 DC IV Furosemide 60 MG BID 02/04 1000 AC 02/04 IV 0815 Furosemide 20 MG ONCE ONE 02/03 1715 DC 02/03 IV 02/03 1716 1959 Furosemide 0 .STK-MED ONE 02/03 1411 DC IV Furosemide 20 MG ONCE ONE 02/03 1345 DC 02/03 IV 02/03 1346 1414 Insulin Aspart 0 TIDAC 02/03 1700 AC 02/04 SC 0835 Ipratropium Porter 2.5 ML ONCE ONE 02/03 1300 DC 02/03 INH 02/03 1301 1357 Lisinopril 5 MG DAILY 02/04 1000 DC PO Lisinopril 20 MG DAILY 02/04 1000 AC PO Methylprednisolone 40 MG Q6 02/03 2359 AC 02/04 IV 0555 Methylprednisolone 0 .STK-MED ONE 02/03 1331 DC .ROUTE Methylprednisolone 125 MG ONCE ONE 02/03 1300 DC 02/03 IV 0505 1301 1330 Metoprolol Succinate 50 MG DAILY 02/04 1000 AC PO Nitroglycerin 0 .STK-MED ONE 02/03 1532 DC TOP Nitroglycerin 2 GM ONCE ONE 02/03 1515 DC 02/03 TOP 02/03 1516 1540 Nystatin 1 KENYON BID PRN 02/04 0500 AC TOP Oxycodone/ 1 TAB DAILY PRN 02/04 0730 AC 02/04 Acetaminophen PO 0841 Oxycodone/ 2 TAB ONCE ONE 02/03 1315 DC Acetaminophen PO 02/03 1316 Patient Medication 1 UNIT ONE NR 02/03 1715 [facility] ED 02/03 1730 Patient Medication 1 UNIT ONE NR 02/03 1630 [facility] ED 02/03 1700 Patient Medication 1 UNIT ONE NR 02/03 1630 [facility] ED 02/03 1700 Patient Medication 1 UNIT ONE NR 02/03 1630 [facility] ED 02/03 1700 Patient Medication 1 UNIT ONE NR 02/03 1630 [facility] ED 02/03 1700 Rivaroxaban 20 MG DAILY 02/04 1000 AC PO Tramadol HCl 50 MG Q8P PRN 02/03 1615 AC 02/03 PO 2322 Last 24 Hrs of Lab/Satish Results Last 24 Hrs of Labs/Mics: Laboratory Tests 02/04/17 0615: Sodium Pending, Potassium Pending, Chloride Pending, Carbon Dioxide Pending, Anion Gap Pending, BUN Pending, Creatinine Pending, BUN/Creatinine Ratio Pending , CBC w Diff Pending, WBC Pending, RBC Pending, Hgb Pending, Hct Pending, MCV Pending, MCH Pending, RDW Pending, Plt Count Pending, MPV Pending, PUBS MCHC Pending 02/04/17 0130: Troponin I < 0.01 02/03/17 2100: pH 7.40, pCO2 56 H, pO2 63 L, HCO3 34 H, ABG O2 Sat (Measured) 89.0 L, Carboxyhemoglobin 2.6, O2 Concentration % 305, Temperature 98.6, Respiration Rate 20, O2 Delivery Method BIPAP, Vent Mode ST, Expiratory Pressure 8, Inspiratory Pressure 18, Phlebotomy Draw Site RIGHT RADIAL 02/03/17 2033: Troponin I < 0.01 02/03/17 1315: pH 7.32 L, pCO2 66 *H, pO2 92, HCO3 33 H, ABG O2 Sat (Measured) 96.0, Carboxyhemoglobin 4.1, O2 Concentration % 6L, O2 Delivery Method NC, Phlebotomy Draw Site LEFT RADIAL 02/03/17 1300: Anion Gap 11, Estimated GFR > 60, BUN/Creatinine Ratio 27.5 H, Glucose 112 H, Calcium 8.7, Total Bilirubin 0.5, AST 22, ALT 30, Alkaline Phosphatase 52, Troponin I < 0.01, Cws-L-Yzrficwzpam Pept 1770 H, Total Protein 7.2, Albumin 4.1, Globulin 3.1, Albumin/Globulin Ratio 1.3, Vitamin B12 281, Folate 12.0, PT 15.4 H, INR 1.47 H, APTT 38 H, CBC w Diff NO MAN DIFF REQ, RBC 4.50 L, MCV 85.9, MCH 28.2, RDW 16.7 H, MPV 9.8, Gran % 70.6, Lymphocytes % 20.9, Monocytes % 6.8, Eosinophils % 1.2, Basophils % 0.5, Absolute Granulocytes 3.3, Absolute Lymphocytes 1.0 L, Absolute Monocytes 0.3, Absolute Eosinophils 0.1, Absolute Basophils 0, PUBS MCHC 32.8 L Microbiology 02/03 2345 NASOPHARYN: Influenza Virus A & B Rapid Smear - COMP 02/03 162 URINE ROUT: Legionella Antigen - COLB 02/03 162 URINE ROUT: Streptococcus pneumoniae Antigen (M - COLB 02/03 1417 URINE ROUT: Urine Culture - RES Assessment/Plan Assessment: #acute respiratory failure COPD vs CHF vs combination -Off BiPAP/patient most probably needs CPAP at night -Check Legionella, strep, flu(negative) -PULM consult in the morning -solu medrol 40 mg q6 - TRC nebs -Daily weights -Intake & output -Per Cardiology IV Lasix 60 mg twice a day, increase lisinopril 20 mg daily #diabetes -diabetic diet, -Blood sugars are relatively controlled, will increase sliding scale insulin #HLP -Continue statin #Hypertension/afib -continue home medication, patient got nitro paste -Continue Xarelto,diltiazim,metroporol #pancytopenia -We'll watch with daily CBC, watch for bleeding -NL B12 and folate Problem List: 1. Respiratory failure Pain Ratin Pain Location: hip Pain Goal: Pain 4 or less Pain Plan: use percocet low dose Tomorrow's Labs & Rationales: cbc bep CONSTANTINE RODRÍGUEZ MD 02/04/17 2000: Attending MD Review Statement Attending Statement Attending MD Statement: examined this patient, discuss w/resident/PA/BED SETTER, agreed w/resident/PA/BED SETTER, reviewed EMR data (avail) Attending Assessment/Plan: 61M PMH atrial fibrillation on Xarelto, hypertension, obstructive sleep apnea( formal sleep study not done ), morbid obesity, T2DM, right hip osteoarthritis presenting with lethargy, dyspnea/apnea and acute hypercapnic respiratory failure with CO2 narcosis. Patient has a history of YULIA but not yet formally diagnosed and not on CPAP. He takes Oxycodone for his chronic back and hip pain. He had an upper respiratory illness in the few days prior to admission. Afebrile, hemodynamically stable, requiring 3L NC, CXR showing mild CHF. Patient is much more awake and alert today. He is able to give a complete history. He plans to have gastric bypass procedure, followed by hip replacement. His goal is to lose 60 pounds. He is anxious to undergo a sleep study to help his YULIA. He sometimes takes Oxycodone for pain and tries not to take too much. 1. Acute hypoxic and hypercapnic respiratory failure 2. CO2 narcosis 3. YULIA 4. Acute exacerbation of COPD 5. Acute on chronic diastolic CHF 6. Chronic lower back and right hip pain 7. Morbid obesity 8. Paroxysmal atrial fibrillation Plan - Admit to telemetry - Lasix 60mg IV BID - Solumedrol 40mg q12h - TRC/nebulizer treatment - BiPAP PRN - Titrate down oxygen as tolerated - Nutrition consult - Cardiology and pulmonary consults - Continue home medications - Avoid narcotics - DVT PPx - On discharge will require referral to bariatric surgery, orthopedics, and pulmonary for sleep study
[2017-02-04 07:56] VITALS: BP 160/90
[2017-02-04 08:10] VITALS: BP 170/102
[2017-02-04 09:01] LABS: ABSOLUTE BASOPHIL COUNT 0 /CUMM (0.0-0.2); ABSOLUTE EOSINOPHIL COUNT 0 /CUMM (0.0-0.7); ABSOLUTE GRANULOCYTE CT 3.1 /CUMM (1.4-6.5); ABSOLUTE LYMPH COUNT 0.4 /CUMM (1.2-3.4); ABSOLUTE MONOCYTE COUNT 0 /CUMM (0.10-0.60); BASOPHIL % 0.3 % (0.0-2.0); EOSINOPHIL % 0.1 % (0-5); GRANULOCYTE % 87.9 % (42.2-75.2); HEMATOCRIT 40.5 % (42-52); MEAN CORPUSCULAR HGB 27.5 PG (27.0-31.0); MEAN CORPUSCULAR VOLUME 85.8 FL (80.0-94.0); MEAN PLATELET VOLUME 9.8 FL (7.4-10.4); RBC DISTRIBUTION WIDTH 16.6 % (11.5-14.5); RED BLOOD CELL CT 4.72 /CUMM (4.70-6.10); WHITE BLOOD CELL COUNT 3.5 /CUMM (4.8-10.8)
[2017-02-04 12:15] LABS: PLATELET COUNT 102 /CUMM (130-400)
--- NOTE | 2017-02-04 12:18 | Cons- Pulmonary ---
General Information and HPI Consulting Request Date of Consult: 02/04/17 Requested By: иван Reason for Consult: Hypercarbic respiratory failure History of Present Illness: Patient is 61-year-old morbidly obese gentleman with a atrial fibrillation on anticoagulation probable sleep apnea actively smoking admitted with hypercapnic respiratory failure. Patient has had symptoms over the past weeks associated with increasing edema. He presented with acute on chronic hypercapnic respiratory failure. He is diuresed over 4 L and feels improved. Chest x-ray shows no evidence of pneumonia. Allergies/Medications Allergies: Coded Allergies: No Known Allergies (01/15/16) Home Med List: Albuterol Sulfate (Proair Hfa) 90 MCG HFA.AER.AD 2 PUF INH Q4P PRN SHORTNESS OF BREATH (Reported) Colchicine 0.6 MG TABLET 1 TAB PO Q6-PRN PRN GOUT (Reported) Diltiazem HCl (Diltiazem 24HR ER) 240 MG CAP.ER.24H 1 CAP PO DAILY HEART ( Reported) Furosemide 40 MG TABLET 1 TAB PO DAILY WATER RETENTION (Reported) Gabapentin 100 MG CAPSULE 2 CAP PO BID UNKNOWN (Reported) Lisinopril 5 MG TABLET 1 TAB PO DAILY HEART (Reported) Metformin Hydochloride (Glucophage) 500 MG TABLET 1 TAB PO BID DIABETES ( Reported) Metoprolol Succinate 50 MG TAB.ER.24H 1 TAB PO DAILY HEART (Reported) Oxycodone HCl/Acetaminophen (Oxycodone-Acetaminophen 10-325) 10 MG-325 MG TABLET 1 TAB PO Q4P PRN PAIN (Reported) Rivaroxaban (Xarelto) 20 MG TABLET 1 TAB PO DAILY BLOOD THINNER (Reported) with food Rosuvastatin Calcium (Crestor) 20 MG TABLET 1 TAB PO DAILY CHOLESTEROL ( Reported) Review of Systems Review of Systems Constitutional: Denies: chills, fever. Cardiovascular: Reports: chest pain, edema, peripheral edema. Respiratory: Reports: cough, short of breath, wheezing. Denies: sputum production. GI: Denies: abdominal pain, bloating, distention, melena. 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 Home Services at Home: None Smoking Status: Current Everyday Smoker ETOH Use: denies use Illicit Drug Use: denies illicit drug use Exam & Diagnostic Data Last 24 Hrs of Vital Signs/I&O Vital Signs Date Time Temp Pulse Resp B/P B/P Pulse O2 O2 Flow FiO2 Mean Ox Delivery Rate 02/04 1031 94 Nasal 2.0L Cannula 02/04 0935 98 170/102 05/ 0935 98 170/102 05/ 0810 105 170/102 05/ 0800 98 Nasal 2.0L Cannula 02/04 0756 97.5 100 14 160/90 98 Nasal 2.0L Cannula 02/04 0120 89 158/86 05/ 0053 92 93 05/ 0019 98.9 93 20 164/100 91 Nasal 2.0L Cannula 02/03 2152 BIPAP 35% 05/ 2105 81 94 02/03 2000 BIPAP 35% 02/03 1741 96.1 94 22 151/80 91 BIPAP / 1704 96 05/05 1638 97.2 76 22 174/84 95 BIPAP 30% 05/05 1604 77 22 190/88 95 BIPAP 30% 05/05 1538 86 22 184/97 95 BIPAP 30% 05/05 1507 97.2 73 22 182/97 96 BIPAP 30% 05/05 1412 73 22 184/119 97 BIPAP 30% 05/05 1358 75 98 05/05 1331 98 Nasal 3.0L Cannula 02/03 1257 96 Nasal 3.0L Cannula 05 1250 97.0 79 20 172/74 95 Nasal 3.0L Cannula Intake & Output 02/04 1600 05/06 0800 05/06 0000 Intake Total 500 100 Output Total 750 2750 Balance -250 -2650 Intake, IV 100 0 Intake, Oral 400 100 Number 0 0 Bowel Movements Output, Urine 750 2750 Patient 353 lb Weight Weight Rosanna Lift Measurement Method Oxygen saturation 2 L 94% HEENT exam shows no adenopathy exam of his chest shows diminished breath sounds occasional crackles and rare wheezes cardiac exam shows no regular S1 and S2 without murmurs abdomen is soft nontender his extremities have symmetrical 2+ edema Last 48 Hrs of Labs/Satish: Laboratory Tests 02/04/17 0615: Anion Gap 10, Estimated GFR > 60, BUN/Creatinine Ratio 31.4 H, CBC w Diff NO MAN DIFF REQ, RBC 4.72, MCV 85.8, MCH 27.5, RDW 16.6 H, MPV 9.8, Gran % 87.9 H , Lymphocytes % 10.3 L, Monocytes % 1.4 L, Eosinophils % 0.1, Basophils % 0.3, Absolute Granulocytes 3.1, Absolute Lymphocytes 0.4 L, Absolute Monocytes 0 L, Absolute Eosinophils 0, Absolute Basophils 0, PUBS MCHC 32.0 L 02/04/17 0130: Troponin I < 0.01 02/03/17 2100: pH 7.40, pCO2 56 H, pO2 63 L, HCO3 34 H, ABG O2 Sat (Measured) 89.0 L, Carboxyhemoglobin 2.6, O2 Concentration % 305, Temperature 98.6, Respiration Rate 20, O2 Delivery Method BIPAP, Vent Mode ST, Expiratory Pressure 8, Inspiratory Pressure 18, Phlebotomy Draw Site RIGHT RADIAL 02/03/17 2033: Troponin I < 0.01 02/03/17 1315: pH 7.32 L, pCO2 66 *H, pO2 92, HCO3 33 H, ABG O2 Sat (Measured) 96.0, Carboxyhemoglobin 4.1, O2 Concentration % 6L, O2 Delivery Method NC, Phlebotomy Draw Site LEFT RADIAL 02/03/17 1300: Anion Gap 11, Estimated GFR > 60, BUN/Creatinine Ratio 27.5 H, Glucose 112 H, Calcium 8.7, Total Bilirubin 0.5, AST 22, ALT 30, Alkaline Phosphatase 52, Troponin I < 0.01, Loo-D-Ihmxpyizkom Pept 1770 H, Total Protein 7.2, Albumin 4.1, Globulin 3.1, Albumin/Globulin Ratio 1.3, Vitamin B12 281, Folate 12.0, PT 15.4 H, INR 1.47 H, APTT 38 H, CBC w Diff NO MAN DIFF REQ, RBC 4.50 L, MCV 85.9, MCH 28.2, RDW 16.7 H, MPV 9.8, Gran % 70.6, Lymphocytes % 20.9, Monocytes % 6.8, Eosinophils % 1.2, Basophils % 0.5, Absolute Granulocytes 3.3, Absolute Lymphocytes 1.0 L, Absolute Monocytes 0.3, Absolute Eosinophils 0.1, Absolute Basophils 0, PUBS MCHC 32.8 L Microbiology 02/03 2345 NASOPHARYN: Influenza Virus A & B Rapid Smear - COMP Assessment/Plan Impression/Plan: 61-year-old gentleman who has chronic obesity alveolar hypoventilation likely sleep apnea admitted with increasing shortness breath in the setting of volume overload elevated BNP and chest x-ray suggestive of congestive heart failure. Arterial blood gases appear back to baseline with normal pH. Recommendations: Taper FiO2 as his saturations allow continue nocturnal BiPAP outpatient sleep study rapidly taper steroids. Continue neck continue negative fluid balance maintaining normal potassium. If he becomes alkalotic may need when necessary Diamox Consult Acknowledgment - Thank you for your consult request.
--- NOTE | 2017-02-04 15:24 | PN- Cardiology ---
Subjective Subjective: Shortness of breath is improving. No chest pain. Lower some edema is improving. No palpitations. No diaphoresis. No lightheadedness or dizziness. Objective Vital Signs and I&Os Vital Signs Date Time Temp Pulse Resp B/P B/P Pulse O2 O2 Flow FiO2 Mean Ox Delivery Rate 02/04 1031 94 Nasal 2.0L Cannula 02/04 0935 98 170/102 / 0935 98 170/102 02/04 0810 105 170/102 02/04 0800 98 Nasal 2.0L Cannula 02/04 0756 97.5 100 14 160/90 98 Nasal 2.0L Cannula 02/04 0120 89 158/86 02/04 0053 92 93 / 0019 98.9 93 20 164/100 91 Nasal 2.0L Cannula 02/03 2152 BIPAP 35% 02/03 2105 81 94 02/03 2000 BIPAP 35% 02/03 1741 96.1 94 22 151/80 91 BIPAP 02/03 1704 96 02/03 1638 97.2 76 22 174/84 95 BIPAP 30% 02/03 1604 77 22 190/88 95 BIPAP 30% 02/03 1538 86 22 184/97 95 BIPAP 30% Intake & Output 02/04 1600 02/04 0800 / 0000 02/03 1600 02/03 0802/03 0000 Intake Total 640 500 100 Output Total 0906 917 3253 1475 Balance -1260 -250 -2650 -1475 Intake, IV 100 0 Intake, Oral 640 400 100 Number 0 0 Bowel Movements Output, Urine 2473 723 2890 1475 Patient 353 lb 335 lb Weight Weight Rosanna Lift Reported by Patient Measurement Method Physical Exam: Gen: NAD HEENT: normal Lungs: Scattered rales, normal resp. effort Heart: RRR, S1, S2, no murmurs Abdomen: Soft, nontender, no masses Extremities: 1+ edema Neuro: Alert and oriented x 3, cranial nerves intact Current Medications: Current Medications Sig/Kendra Start time Last Medication Dose Route Stop Time Status Admin Acetaminophen 1,000 MG Q8P PRN 02/03 1615 AC 02/04 N/A 1 UNIT IV 0555 Albuterol Sulfate 3 ML Q4-PRN PRN 02/03 2215 AC 02/04 INH 1031 Colchicine 600 MCG Q6-PRN PRN 02/03 1600 DC PO Diltiazem HCl 240 MG DAILY 02/04 1000 AC 02/04 PO 0935 Docusate Sodium 100 MG BID 02/04 1112 AC 02/04 PO 1230 Furosemide 40 MG DAILY 02/04 1000 DC IV Furosemide 60 MG BID 02/04 1000 AC 02/04 IV 0815 Furosemide 20 MG ONCE ONE 02/03 1715 DC 02/03 IV 02/03 1716 1959 Insulin Aspart 0 TIDAC 02/03 1700 AC 02/04 SC 1226 Lisinopril 5 MG DAILY 02/04 1000 DC PO Lisinopril 20 MG DAILY 02/04 1000 AC 02/04 PO 0935 Methylprednisolone 40 MG Q12 02/05 1000 AC IV Methylprednisolone 40 MG Q6 02/03 2359 DC 02/04 IV 1226 Metoprolol Succinate 50 MG DAILY 02/04 1000 AC 02/04 PO 0935 Nitroglycerin 0 .STK-MED ONE 02/03 1532 [facility] TOP Nystatin 1 KENYON BID PRN 02/04 0500 TOP Oxycodone/ 1 TAB DAILY PRN 02/04 0730 AC 02/04 Acetaminophen PO 0841 Patient Medication 1 UNIT ONE NR 02/03 1715 [facility] Teaching ED 02/03 1730 Patient Medication 1 UNIT ONE NR 02/[address] [facility] ED 02/03 1700 Patient Medication 1 UNIT ONE NR 02/[address] [facility] ED 02/03 1700 Patient Medication 1 UNIT ONE NR 02/[address] [facility] ED 02/03 1700 Patient Medication 1 UNIT ONE NR 02/[address] [facility] ED 02/03 1700 Rivaroxaban 20 MG 1800 02/04 1800 AC PO Rivaroxaban 20 MG DAILY 02/04 1000 DC PO Tramadol HCl 50 MG Q8P PRN 02/03 1615 AC 02/03 PO 2322 Results Last 48 Hrs of Labs/Mics: Laboratory Tests 02/04/17 0615: Anion Gap 10, Estimated GFR > 60, BUN/Creatinine Ratio 31.4 H, CBC w Diff NO MAN DIFF REQ, RBC 4.72, MCV 85.8, MCH 27.5, RDW 16.6 H, MPV 9.8, Gran % 87.9 H , Lymphocytes % 10.3 L, Monocytes % 1.4 L, Eosinophils % 0.1, Basophils % 0.3, Absolute Granulocytes 3.1, Absolute Lymphocytes 0.4 L, Absolute Monocytes 0 L, Absolute Eosinophils 0, Absolute Basophils 0, PUBS MCHC 32.0 L 02/04/17 0130: Troponin I < 0.01 02/03/17 2100: pH 7.40, pCO2 56 H, pO2 63 L, HCO3 34 H, ABG O2 Sat (Measured) 89.0 L, Carboxyhemoglobin 2.6, O2 Concentration % 305, Temperature 98.6, Respiration Rate 20, O2 Delivery Method BIPAP, Vent Mode ST, Expiratory Pressure 8, Inspiratory Pressure 18, Phlebotomy Draw Site RIGHT RADIAL 02/03/17 2033: Troponin I < 0.01 02/03/17 1315: pH 7.32 L, pCO2 66 *H, pO2 92, HCO3 33 H, ABG O2 Sat (Measured) 96.0, Carboxyhemoglobin 4.1, O2 Concentration % 6L, O2 Delivery Method NC, Phlebotomy Draw Site LEFT RADIAL 02/03/17 1300: Anion Gap 11, Estimated GFR > 60, BUN/Creatinine Ratio 27.5 H, Glucose 112 H, Calcium 8.7, Total Bilirubin 0.5, AST 22, ALT 30, Alkaline Phosphatase 52, Troponin I < 0.01, Qvt-C-Pckgwmeoosp Pept 1770 H, Total Protein 7.2, Albumin 4.1, Globulin 3.1, Albumin/Globulin Ratio 1.3, Vitamin B12 281, Folate 12.0, PT 15.4 H, INR 1.47 H, APTT 38 H, CBC w Diff NO MAN DIFF REQ, RBC 4.50 L, MCV 85.9, MCH 28.2, RDW 16.7 H, MPV 9.8, Gran % 70.6, Lymphocytes % 20.9, Monocytes % 6.8, Eosinophils % 1.2, Basophils % 0.5, Absolute Granulocytes 3.3, Absolute Lymphocytes 1.0 L, Absolute Monocytes 0.3, Absolute Eosinophils 0.1, Absolute Basophils 0, PUBS MCHC 32.8 L Microbiology 02/035 NASOPHARYN: Influenza Virus A & B Rapid Smear - COMP 02/03 1050 URINE ROUT: Legionella Antigen - COMP 02/03 1050 URINE ROUT: Streptococcus pneumoniae Antigen (M - COMP Assessment/Plan Assessment/Plan Assessment: 1. Obstructive sleep apnea 2. Acute heart failure with preserved ejection fraction 3. Paroxysmal atrial fibrillation, anticoagulated on Xarelto 4. Hypertension Plan: * Continue Lasix 60 mg IV every 12 hours * Continue other cardiac medications * Follow input and output with daily weights * Check basic metabolic profile daily Continue telemetry? Yes
[2017-02-04 15:30] VITALS: BP 158/98
--- NOTE | 2017-02-04 16:14 | NUR ---
Visited with pt today to discuss diet as pt asking for extra CHO. Upon visit, pt explained he was supposed to have outpatient nutrition visit yesterday but had to cancel as he was ill and then ended up being admitted to hospital. Pt reports that he needs to lose wt so he can get a hip surgery and he wants to lose wt. Pt has done Weight Watchers in the past and did well on it. This RD provided contact information and encouraged pt to reschedule his outpatient nutrition visit and call RD with questions and he said he plans on doing both. Pt states he lives with his sister and she wants to lose wt with him as well. Pt plans on going to the grocery store to buy healthier foods and read nutrition labels. Refer to patient education note entered today.
--- NOTE | 2017-02-04 20:00 | Admission Certification ---
Admission Certification Certification Statement - As attending physician, I certify that at the time of - admission, based on clinical presentation, severity of - symptoms, need for further diagnostic testing and - therapeutic interventions, and risk of adverse outcomes - without in-hospital treatment, in my clinical assessment, - this patient requires an acute hospital stay for a minimum - of two nights or longer. I have also considered psychsocial - factors such as support system, advanced age, financial - issues, cognitive issues, and failed out-patient treatments, - past re-admission history, safety of patient, and lack of - compliance as applicable. Specific rationale supporting this admission is: Hypercapnea with lethargy
[2017-02-05 00:50] VITALS: BP 140/100
[2017-02-05 07:59] VITALS: BP 170/110
--- NOTE | 2017-02-05 08:41 | PN- Housestaff ---
AGNIESZKA BRADSHAW,[facility] 02/05/17 0841: Subjective Follow-up For: 1. Acute hypoxic and hypercapnic respiratory failure 2. Acute exacerbation of COPD 3. Acute on chronic diastolic CHF 4. CO2 narcosis - resolved 5. YULIA 6. Morbid obesity 7. Paroxysmal atrial fibrillation 8. Chronic lower back and right hip pain Tele-Events Since Last Visit: A fib 70-77 Subjective: The patient reported feeling better today as far his breathuing is concerned but he was having productive cough, and is only intermittently able to expectorate with white phlegm. He continues to have wheezing. Is able to lay at around 30 degrees and does not feel short of breath. No edema. No chest pain. No fevers. Slept well last night. Review of Systems Constitutional: Reports: see HPI. Cardiovascular: Denies: chest pain, edema, peripheral edema. Respiratory: Reports: cough, short of breath (improved), sputum production, wheezing. Gastrointestinal: Reports: no symptoms. Genitourinary: Reports: no symptoms. Musculoskeletal: Reports: see HPI. Objective Last 24 Hrs of Vital Signs/I&O Vital Signs Date Time Temp Pulse Resp B/P B/P Pulse O2 O2 Flow FiO2 Mean Ox Delivery Rate 02/05 0827 78 170/110 02/05 0827 78 170/110 02/05 0759 97.4 78 16 170/110 95 Nasal Cannula 02/05 0050 97.6 80 20 140/100 97 BIPAP 02/05 0042 71 93 02/05 0000 BIPAP 35% 02/04 2224 86 94 02/04 1946 91 Room Air Room Air 02/04 1600 94 Nasal 2.0L Cannula 02/04 1530 98.1 94 18 158/98 94 Nasal 3.0L Cannula 02/04 1031 94 Nasal 2.0L Cannula Intake & Output 02/05 1600 02/05 0800 05/ 0000 Intake Total 750 1250 Output Total 3000 750 Balance -2250 500 Intake, IV 0 0 Intake, Oral 750 1250 Number 0 Bowel Movements Output, Urine 3000 750 Patient 339 lb Weight Weight Standing Scale Measurement Method Physical Exam General Appearance: Alert, Oriented X3, Cooperative, No Acute Distress Skin: No Rashes, No Breakdown, No Significant Lesion Neck: No JVD Cardiovascular: Normal S1, Normal S2, No Murmurs, irregularly irregular Lungs: bilateral diffuse wheezing crackles at the bases only, minimal Abdomen: Normal Bowel Sounds, Soft, No Tenderness, No Hepatospenomegaly Extremities: No Cyanosis, No Edema, Normal Pulses Current Medications: Current Medications Sig/Kendra Start time Last Medication Dose Route Stop Time Status Admin Acetaminophen 1,000 MG Q8P PRN 02/03 1615 AC 02/04 N/A 1 UNIT IV 0555 Albuterol Sulfate 3 ML Q4-PRN PRN 02/03 2215 AC 02/04 INH 1944 Diltiazem HCl 240 MG DAILY 02/04 1000 AC 02/05 PO 0826 Docusate Sodium 100 MG BID 02/04 1112 AC 02/04 PO 1230 Furosemide 60 MG BID 02/04 1000 AC 02/05 IV 0826 Guaifenesin 600 MG Q12 02/05 1000 AC PO Guaifenesin 10 ML Q4P PRN 02/05 0915 AC PO Insulin Aspart 0 TIDAC 02/03 1700 AC 02/05 SC 0742 Lisinopril 20 MG DAILY 02/04 1000 AC 02/05 PO 0827 Methylprednisolone 40 MG Q12 02/05 1000 AC 02/05 IV 0827 Methylprednisolone 40 MG Q6 02/03 2359 DC 02/04 IV 1226 Metoprolol Succinate 50 MG DAILY 02/04 1000 AC 02/05 PO 0827 Nystatin 1 KENYON BID PRN 02/04 0500 AC TOP Oxycodone/ 1 TAB DAILY PRN 02/04 0730 AC 02/05 Acetaminophen PO 0326 Rivaroxaban 20 MG 1800 02/04 1800 AC 02/04 PO 1751 Sodium Chloride 2 SPRAY Q4P PRN 02/04 1700 AC 02/04 MAURO 1752 Tramadol HCl 50 MG ONCE ONE 02/04 2015 DC 02/04 PO 02/04 2016 2143 Tramadol HCl 50 MG Q8P PRN 02/03 1615 AC 02/03 PO 2322 Last 24 Hrs of Lab/Satish Results Last 24 Hrs of Labs/Mics: Laboratory Tests 02/05/17 0749: Anion Gap 10, Estimated GFR > 60, BUN/Creatinine Ratio 42.5 H, CBC w Diff Pending, WBC Pending, RBC Pending, Hgb Pending, Hct Pending, MCV Pending, MCH Pending, RDW Pending, Plt Count Pending, MPV Pending, PUBS MCHC Pending Microbiology 02/05 905 LOWER RESP: Respiratory Culture - COLB 02/05 905 LOWER RESP: Gram Stain - COLB Assessment/Plan Assessment: 61-year-old gentleman with chronic obesity hypoventilation syndrome likely sleep apnea admitted with increasing shortness breath in the setting of volume overload elevated BNP and chest x-ray suggestive of congestive heart failure, hypercarbia, admitted to [facility] for acute on chronic hypoxic and hypercarbic respiratory failure likely secondary to diastolic CHF exacerbation and acute execarbation of COPD. Was started on IV lasix and IV steroids. Assesment and Plan: 1. Acute on chronic hypoxic and hypercarbic respiratory failure, secondary to diastolic CHF exacerbation and acute execarbation of COPD: - The patient was started on Bipap on admission, now off bipap. Initially ABGs showed pCO2 of 66, now resiolved with pCO2 of 56, shortness of breath better after being diuresed and starting on IV Steroids. - CPAP at night, saturating at 94% on 2 liters by nasal cannula - Legionella, strep, flu are negative - Will continue with IV Solumedrol 40 mg Q12 for now, still wheezing, will probably taper in am - Will cotinue with Lasix 60 mg BID, may taper to Daily to day. He has diuresed beautifully with a total of 7 liters and is in negaive fluid balance. Crackles are minimal as well. - TRC nebs - Daily weights - Intake & output - Will follow Pulm and Cardio input 2. HTN: - BP has been high, lisinopril was increased to 20 mg Daily yesterday, CAR DEALER still high 170/110 - Will monitor and may increase further - Will follow cardio 3. diabetes - Diabetic diet - ISS, will monitor as the patient is on IV Steroids, and adjust according - ACCUchecks 4. HLD - Continue Atorvastatin (On crestor at home) 5. Afib: - Continue Metoprolol XL 50 mg Po Daily, Cardizem 240 mg Po Daily - COntinue Xarelto 6. pancytopenia -We'll watch with daily CBC, watch for bleeding -NL B12 and folate Problem List: 1. Hypercapnic respiratory failure 2. CHF (congestive heart failure) Pain Ratin Pain Location: back Pain Goal: Pain 4 or less Pain Plan: Oxycodone Tomorrow's Labs & Rationales: cbc - pancytopenia bep DVT/Prophylaxis: pharmacological Consulting Request: 1 Consulting Specialty: Cardiology Consulting Physician: Dr. Luna Reason for Consult: CHF Consulting Request: 2 Consulting Specialty: Pulmonary Disease Consulting Physician: Dr. Bennett Reason for Consult: Resp failure Discharge Plan Stable for Discharge? No CONSTANTINE RODRÍGUEZ MD 02/05/17 1355: Attending MD Review Statement Attending Statement Attending MD Statement: examined this patient, discuss w/resident/PA/CAR DEALER, agreed w/resident/PA/CAR DEALER, reviewed EMR data (avail) Attending Assessment/Plan: 61M PMH atrial fibrillation on Xarelto, hypertension, obstructive sleep apnea( formal sleep study not done ), morbid obesity, T2DM, right hip osteoarthritis presenting with lethargy, dyspnea/apnea and acute hypercapnic respiratory failure with CO2 narcosis. Patient has a history of YULIA but not yet formally diagnosed and not on CPAP. He takes Oxycodone for his chronic back and hip pain. He had an upper respiratory illness in the few days prior to admission. Afebrile, hemodynamically stable, requiring 3L NC, CXR showing mild CHF. Patient is much more awake and alert today. He is able to give a complete history. He plans to have gastric bypass procedure, followed by hip replacement. His goal is to lose 60 pounds. He is anxious to undergo a sleep study to help his YULIA. He sometimes takes Oxycodone for pain and tries not to take too much. 1. Acute hypoxic and hypercapnic respiratory failure 2. CO2 narcosis 3. YULIA 4. Acute exacerbation of COPD 5. Acute on chronic diastolic CHF 6. Chronic lower back and right hip pain 7. Morbid obesity 8. Paroxysmal atrial fibrillation Plan - Admit to telemetry - Lasix 60mg IV BID - Solumedrol 40mg q12h - TRC/nebulizer treatment - BiPAP PRN - Titrate down oxygen as tolerated - Nutrition consult - Cardiology and pulmonary consults - Continue home medications - Avoid narcotics - DVT PPx - On discharge will require referral to bariatric surgery, orthopedics, and pulmonary for sleep study
[2017-02-05 09:13] LABS: ABSOLUTE EOSINOPHIL COUNT 0 /CUMM (0.0-0.7); ABSOLUTE GRANULOCYTE CT 5.7 /CUMM (1.4-6.5); ABSOLUTE LYMPH COUNT 0.6 /CUMM (1.2-3.4); ABSOLUTE MONOCYTE COUNT 0.5 /CUMM (0.10-0.60); HEMATOCRIT 41.8 % (42-52); MEAN CORPUSCULAR HGB 27.5 PG (27.0-31.0); MEAN CORPUSCULAR HGB CONC 31.9 G/DL (33.0-37.0); MEAN CORPUSCULAR VOLUME 86.1 FL (80.0-94.0); MEAN PLATELET VOLUME 9.8 FL (7.4-10.4); PLATELET COUNT 128 /CUMM (130-400); RBC DISTRIBUTION WIDTH 16.9 % (11.5-14.5); RED BLOOD CELL CT 4.86 /CUMM (4.70-6.10)
--- NOTE | 2017-02-05 09:15 | PN- Pulmonary ---
Subjective HPI/Critical Care Issues: Patient is awake alert and feels less short of breath he continues to diurese effectively Objective Current Medications: Current Medications Sig/Kendra Start time Last Medication Dose Route Stop Time Status Admin Acetaminophen 1,000 MG Q8P PRN 02/03 1615 AC 02/04 N/A 1 UNIT IV 0555 Albuterol Sulfate 3 ML Q4-PRN PRN 02/03 2215 AC 02/04 INH 1944 Diltiazem HCl 240 MG DAILY 02/04 1000 AC 02/05 PO 0826 Docusate Sodium 100 MG BID 02/04 1112 AC 02/04 PO 1230 Furosemide 60 MG BID 02/04 1000 AC 02/05 IV 0826 Guaifenesin 600 MG Q12 02/05 1000 UNVr PO Guaifenesin 10 ML Q4P PRN 02/05 0915 UNVr PO Insulin Aspart 0 TIDAC 02/03 1700 AC 02/05 SC 0742 Lisinopril 20 MG DAILY 02/04 1000 AC 02/05 PO 0827 Methylprednisolone 40 MG Q12 02/05 1000 AC 02/05 IV 0827 Methylprednisolone 40 MG Q6 02/03 2359 DC 02/04 IV 1226 Metoprolol Succinate 50 MG DAILY 02/04 1000 AC 02/05 PO 0827 Nystatin 1 KENYON BID PRN 02/04 0500 AC TOP Oxycodone/ 1 TAB DAILY PRN 02/04 0730 AC 02/05 Acetaminophen PO 0326 Rivaroxaban 20 MG 1800 02/04 1800 AC 02/04 PO 1751 Rivaroxaban 20 MG DAILY 02/04 1000 DC PO Sodium Chloride 2 SPRAY Q4P PRN 02/04 1700 AC 02/04 MAURO 1752 Tramadol HCl 50 MG ONCE ONE 02/04 2015 DC 02/04 PO 02/04 2016 214 Tramadol HCl 50 MG Q8P PRN 02/03 1615 AC 02/03 PO 2322 Vital Signs & I&O Last 24 Hrs of Vitals and I&O: Vital Signs Date Time Temp Pulse Resp B/P B/P Pulse O2 O2 Flow FiO2 Mean Ox Delivery Rate 02/05 827 78 170/110 02/05 827 78 170/110 02/05 0759 97.4 78 16 170/110 95 Nasal Cannula 02/05 0050 97.6 80 20 140/100 97 BIPAP 02/05 0042 71 93 02/05 0000 BIPAP 35% 02/04 2224 86 94 02/04 1946 91 Room Air Room Air 02/04 1600 94 Nasal 2.0L Cannula 02/04 1530 98.1 94 18 158/98 94 Nasal 3.0L Cannula 02/04 1031 94 Nasal 2.0L Cannula 02/04 0935 98 170/102 02/04 0935 98 170/102 Intake & Output 02/05 1600 02/05 0800 05 0000 Intake Total 750 1250 Output Total 3000 750 Balance -2250 500 Intake, IV 0 0 Intake, Oral 750 1250 Number 0 Bowel Movements Output, Urine 3000 750 Patient 339 lb Weight Weight Standing Scale Measurement Method Since saturation 2 L 94% to have his chest shows diminished breath sounds there are no wheezes cardiac exam shows regular S1 and S2 edema of the legs his reduced Impression/Plan Impression/Plan Impression/Plan: 61-year-old gentleman who has chronic obesity alveolar hypoventilation likely sleep apnea admitted with increasing shortness breath in the setting of volume overload elevated BNP and chest x-ray suggestive of congestive heart failure. Arterial blood gases appear back to baseline with normal pH. Respiratory status is improved with diuresis of 7 L Recommendations: Taper FiO2 as his saturations allow continue nocturnal BiPAP outpatient sleep study rapidly taper steroids. continue negative fluid balance maintaining normal potassium. If he becomes alkalotic may need when necessary Diamox. Continue present therapy mobilized out of bed
[2017-02-05 11:14] LABS: WHITE BLOOD CELL COUNT 6.7 /CUMM (4.8-10.8)
[2017-02-05 11:15] LABS: ABSOLUTE BASOPHIL COUNT 0 /CUMM (0.0-0.2); BASOPHIL % 0.1 % (0.0-2.0); EOSINOPHIL % 0 % (0-5); GRANULOCYTE % 84.9 % (42.2-75.2)
--- NOTE | 2017-02-05 13:44 | PN- Cardiology ---
Subjective Subjective: Feeling somewhat better. Shortness of breath is improving. He is diuresing well on Lasix. No chest pain. No palpitations. No diaphoresis. No significant dizziness. No nausea Objective Vital Signs and I&Os Vital Signs Date Time Temp Pulse Resp B/P B/P Pulse O2 O2 Flow FiO2 Mean Ox Delivery Rate 02/05 1034 94 Nasal 2.0L Cannula 02/05 0827 78 170/110 02/05 0827 78 170/110 02/05 0759 97.4 78 16 170/110 95 Nasal Cannula 02/05 0050 97.6 80 20 140/100 97 BIPAP 02/05 0042 71 93 02/05 0000 BIPAP 35% 02/04 2224 86 94 02/04 1946 91 Room Air Room Air 02/04 1600 94 Nasal 2.0L Cannula 02/04 1530 98.1 94 18 158/98 94 Nasal 3.0L Cannula Intake & Output 02/05 1600 02/05 0800 05/07 0000 / 1600 02/04 0800 02/04 0000 Intake Total 750 1250 640 500 100 Output Total 1400 3000 750 1787 989 3389 Balance -1400 -2250 500 -1260 -250 -2650 Intake, IV 0 0 100 0 Intake, Oral 750 1250 640 400 100 Number 0 0 0 Bowel Movements Output, Urine 1400 3000 750 [phone] Patient 339 lb 353 lb Weight Weight Standing Scale Rosanna Lift Measurement Method Physical Exam: Gen: NAD HEENT: normal Lungs: Scattered rales, normal resp. effort Heart: RRR, S1, S2, no murmurs Abdomen: Soft, nontender, no masses Extremities: 1+ edema Neuro: Alert and oriented x 3, cranial nerves intact Current Medications: Current Medications Sig/Kendra Start time Last Medication Dose Route Stop Time Status Admin Acetaminophen 1,000 MG Q8P PRN 02/03 1615 AC 02/04 N/A 1 UNIT IV 0555 Albuterol Sulfate 3 ML Q4-PRN PRN 02/03 2215 AC 02/05 INH 1033 Atorvastatin Calcium 80 MG 1700 02/05 1700 AC PO Diltiazem HCl 240 MG DAILY 02/04 1000 AC 02/05 PO 0826 Docusate Sodium 100 MG BID 02/04 1112 AC 05 PO 1230 Furosemide 60 MG BID 02/04 1000 AC 05 IV 0826 Guaifenesin 600 MG Q12 05/07 1000 AC 02/05 PO 1221 Guaifenesin 10 ML Q4P PRN 02/05 0915 AC PO Insulin Aspart 0 TIDAC 02/03 1700 AC 02/05 SC 1220 Lisinopril 20 MG DAILY 02/04 1000 AC 02/05 PO 0827 Methylprednisolone 40 MG Q12 02/05 1000 AC 02/05 IV 0827 Methylprednisolone 40 MG Q6 02/03 2359 DC 02/04 IV 1226 Metoprolol Succinate 50 MG DAILY 02/04 1000 AC 02/05 PO 0827 Nystatin 1 KENYON BID PRN 02/04 0500 AC TOP Oxycodone/ 1 TAB DAILY PRN 02/04 0730 AC 02/05 Acetaminophen PO 0326 Rivaroxaban 20 MG 1800 02/04 1800 AC 02/04 PO 1751 Sodium Chloride 2 SPRAY Q4P PRN 02/04 1700 AC 02/04 MAURO 1752 Tramadol HCl 50 MG ONCE ONE 02/04 2015 DC 02/04 PO 02/05 2016 2143 Tramadol HCl 50 MG Q8P PRN 02/03 1615 AC 02/03 PO 2322 Results Last 48 Hrs of Labs/Mics: Laboratory Tests 02/05/17 0749: Anion Gap 10, Estimated GFR > 60, BUN/Creatinine Ratio 42.5 H, CBC w Diff NO MAN DIFF REQ, RBC 4.86, MCV 86.1, MCH 27.5, RDW 16.9 H, MPV 9.8, Gran % 84.9 H , Lymphocytes % 8.3 L, Monocytes % 6.7, Eosinophils % 0, Basophils % 0.1, Absolute Granulocytes 5.7, Absolute Lymphocytes 0.6 L, Absolute Monocytes 0.5, Absolute Eosinophils 0, Absolute Basophils 0, PUBS MCHC 31.9 L 02/04/17 0615: Anion Gap 10, Estimated GFR > 60, BUN/Creatinine Ratio 31.4 H, CBC w Diff NO MAN DIFF REQ, RBC 4.72, MCV 85.8, MCH 27.5, RDW 16.6 H, MPV 9.8, Gran % 87.9 H , Lymphocytes % 10.3 L, Monocytes % 1.4 L, Eosinophils % 0.1, Basophils % 0.3, Absolute Granulocytes 3.1, Absolute Lymphocytes 0.4 L, Absolute Monocytes 0 L, Absolute Eosinophils 0, Absolute Basophils 0, PUBS MCHC 32.0 L 02/04/17 0130: Troponin I < 0.01 02/03/17 2100: pH 7.40, pCO2 56 H, pO2 63 L, HCO3 34 H, ABG O2 Sat (Measured) 89.0 L, Carboxyhemoglobin 2.6, O2 Concentration % 305, Temperature 98.6, Respiration Rate 20, O2 Delivery Method BIPAP, Vent Mode ST, Expiratory Pressure 8, Inspiratory Pressure 18, Phlebotomy Draw Site RIGHT RADIAL 02/03/172032: Troponin I < 0.01 Microbiology 02/03 2345 NASOPHARYN: Influenza Virus A & B Rapid Smear - COMP 02/03 1417 URINE ROUT: Urine Culture - COMP Assessment/Plan Assessment/Plan Assessment: 1. Obstructive sleep apnea 2. Acute heart failure with preserved ejection fraction 3. Paroxysmal atrial fibrillation, anticoagulated on Xarelto 4. Hypertension Plan: * Continue Lasix 60 mg IV every 12 hours * Continue other cardiac medications * Follow input and output with daily weights * Check basic metabolic profile daily Continue telemetry? Yes
[2017-02-05 15:30] VITALS: BP 160/110
[2017-02-05] MEDS ORDERED: GUAIFENESI100 MG/5 M PO (17:01)
[2017-02-05] MEDS ORDERED: DEEP SEA44 ML NAS (17:01)
[2017-02-05] MEDS ORDERED: LISINOPRIL20 M1 PO (17:01)
[2017-02-05 22:30] VITALS: BP 140/88
[2017-02-06 08:00] VITALS: BP 182/92
[2017-02-06 08:00] LABS: ABSOLUTE BASOPHIL COUNT 0 /CUMM (0.0-0.2); ABSOLUTE EOSINOPHIL COUNT 0 /CUMM (0.0-0.7); ABSOLUTE GRANULOCYTE CT 5.3 /CUMM (1.4-6.5); ABSOLUTE LYMPH COUNT 0.4 /CUMM (1.2-3.4); ABSOLUTE MONOCYTE COUNT 0.2 /CUMM (0.10-0.60); BASOPHIL % 0 % (0.0-2.0); EOSINOPHIL % 0.3 % (0-5); HEMATOCRIT 43.7 % (42-52); MEAN CORPUSCULAR HGB 27.5 PG (27.0-31.0); MEAN CORPUSCULAR HGB CONC 31.9 G/DL (33.0-37.0); MEAN CORPUSCULAR VOLUME 86.2 FL (80.0-94.0); MEAN PLATELET VOLUME 9.4 FL (7.4-10.4); PLATELET COUNT 122 /CUMM (130-400); RBC DISTRIBUTION WIDTH 16.4 % (11.5-14.5); RED BLOOD CELL CT 5.07 /CUMM (4.70-6.10); WHITE BLOOD CELL COUNT 5.9 /CUMM (4.8-10.8)
--- NOTE | 2017-02-06 08:01 | PN- Pulmonary ---
Subjective HPI/Critical Care Issues: Shortness of breath is improved he is diuresed 9 L today. Objective Current Medications: Current Medications Sig/Kendra Start time Last Medication Dose Route Stop Time Status Admin Acetaminophen 1,000 MG Q8P PRN 02/03 1615 AC 02/04 N/A 1 UNIT IV 0555 Albuterol Sulfate 3 ML Q4-PRN PRN 02/03 2215 AC 02/05 INH 1637 Atorvastatin Calcium 80 MG 1700 02/05 1700 AC 02/05 PO 1816 Diltiazem HCl 240 MG DAILY 02/04 1000 AC 02/05 PO 0826 Docusate Sodium 100 MG BID 02/04 1112 AC 02/04 PO 1230 Furosemide 60 MG BID 02/04 1000 AC 02/05 IV 2230 Guaifenesin 600 MG Q12 02/05 1000 AC 02/05 PO 2231 Guaifenesin 10 ML Q4P PRN 02/05 0915 AC PO Insulin Aspart 0 TIDAC 02/03 1700 AC 02/05 SC 1816 Lisinopril 20 MG DAILY 02/04 1000 AC 02/05 PO 0827 Methylprednisolone 40 MG Q12 02/05 1000 AC 02/05 IV 2231 Metoprolol Succinate 50 MG DAILY 02/04 1000 AC 02/05 PO 0827 Nystatin 1 KENYON BID PRN 02/04 0500 AC TOP Oxycodone/ 1 TAB DAILY PRN 02/04 0730 AC 02/05 Acetaminophen PO 2230 Rivaroxaban 20 MG 1800 / 1800 AC 02/05 PO 1815 Sodium Chloride 2 SPRAY Q4P PRN 02/04 1700 AC 02/04 MAURO 1752 Tramadol HCl 50 MG Q8P PRN 02/03 1615 AC 02/06 PO 0315 Vital Signs & I&O Last 24 Hrs of Vitals and I&O: Vital Signs Date Time Temp Pulse Resp B/P B/P Pulse O2 O2 Flow FiO2 Mean Ox Delivery Rate 02/06 0037 98 94 02/06 0000 94 BIPAP 35% 02/05 2348 97.9 69 20 96 BIPAP 02/05 2308 84 93 02/05 2230 140/88 02/05 1639 93 Room Air Room Air 02/05 1600 93 Nasal 1.0L Cannula 02/05 1530 97.9 103 16 160/110 93 Nasal 1.0L Cannula 02/05 1034 94 Nasal 2.0L Cannula 05/07 0827 78 170/110 02/05 827 78 170/110 02/05 0800 95 Nasal 2.0L Cannula Intake & Output 02/06 0800 02/06 0000 02/05 1600 Intake Total 600 600 Output Total 3000 1350 2800 Balance -3000 -750 -2200 Intake, Oral 600 600 Output, Urine 3000 1350 2800 Patient 330 lb Weight Weight Standing Scale Measurement Method Oxygen saturation room air 93% exam of his chest shows diminished breath sounds are no wheezes cardiac exam shows regular S1 and S2 without murmurs edema is diminished Impression/Plan Impression/Plan Impression/Plan: 61-year-old gentleman who has chronic obesity alveolar hypoventilation likely sleep apnea admitted with increasing shortness breath in the setting of volume overload elevated BNP and chest x-ray suggestive of congestive heart failure. Arterial blood gases appear back to baseline with normal pH. Respiratory status is improved with diuresis of 9 l Recommendations: Taper FiO2 as his saturations allow continue nocturnal BiPAP outpatient sleep study continue negative fluid balance maintaining normal potassium. If he becomes alkalotic may need when necessary Diamox. DC IV steroids and rapidly taper
--- NOTE | 2017-02-06 08:13 | PN- Housestaff ---
Subjective Follow-up For: - hypercarbia Complaints: no complaints Tele-Events Since Last Visit: Afib, R 65-84, PVCs, Subjective: Pt comfortbale. No complaints. Vitals stable, w/ elevation of BP. On BiPAP 35% O2. Pt motivated to schedule an appointment w/ the nitroglycerin neutralizer for getting a sleep study done. Also discussed w/ him about the lifestyle modification. Review of Systems Constitutional: Reports: see HPI. Objective Last 24 Hrs of Vital Signs/I&O Vital Signs Date Time Temp Pulse Resp B/P B/P Pulse O2 O2 Flow FiO2 Mean Ox Delivery Rate 02/07 800 97.9 98 20 182/92 93 02/06 0037 98 94 05 0000 94 BIPAP 35% 02/05 2348 97.9 69 20 96 BIPAP 02/05 2308 84 93 02/05 2230 140/88 02/05 1639 93 Room Air Room Air 02/05 1600 93 Nasal 1.0L Cannula 02/05 1530 97.9 103 16 160/110 93 Nasal 1.0L Cannula 02/05 1034 94 Nasal 2.0L Cannula 02/05 0827 78 170/110 0507 0827 78 170/110 Intake & Output 02/06 1600 02/06 0800 02/06 0000 Intake Total 600 Output Total 3000 1350 Balance -3000 -750 Intake, Oral 600 Output, Urine 3000 1350 Patient 330 lb Weight Weight Standing Scale Measurement Method Physical Exam General Appearance: No Acute Distress Other Physical Findings: General Appearance Alert, Oriented X3, Cooperative, No Acute Distress Skin No Rashes, No Breakdown, No Significant Lesion Skin Temp/Moisture Exam: Warm/Dry Sepsis Skin Exam (color): Normal for Ethnicity HEENT Atraumatic, PERRLA, EOMI Neck Supple, No JVD, No thryomegaly, +2 Carotid Pulse wo Bruit Lymphatic Cervical nl Cardiovascular Regular Rate, Normal S1, Normal S2 Lungs Normal Air Movement, wheezing b/l Abdomen Normal Bowel Sounds, Soft, No Tenderness, No Hepatospenomegaly Neurological Normal Speech, Strength at 5/5 X4 Ext, Normal Tone, Sensation Intact, Cranial Nerves 3-12 NL, Reflexes 2+ Extremities No Clubbing, No Cyanosis, Normal Pulses, pedal edema Vascular Pulses Symmetrical Current Medications: Current Medications Sig/Kendra Start time Last Medication Dose Route Stop Time Status Admin Acetaminophen 1,000 MG Q8P PRN 02/03 1615 AC 02/06 N/A 1 UNIT IV 2035 Albuterol Sulfate 3 ML Q4-PRN PRN 02/03 2215 AC 02/06 INH 1437 Atorvastatin Calcium 80 MG 1700 02/05 1700 AC 02/06 PO 1733 Diltiazem HCl 240 MG DAILY 02/04 1000 AC 02/06 PO 0828 Docusate Sodium 100 MG BID 02/04 1112 AC 02/04 PO 1230 Furosemide 60 MG 7:30 AM, & 4:30 PM 02/06 1630 AC 02/06 PO 1545 Furosemide 60 MG BID 02/04 1000 DC 02/06 IV 0822 Guaifenesin 600 MG Q12 02/05 1000 AC 02/06 PO 2112 Guaifenesin 10 ML Q4P PRN 02/05 0915 AC PO Insulin Aspart 0 TIDAC 02/06 1200 AC 02/06 SC 1734 Insulin Aspart 0 TIDAC 02/03 1700 DC 02/06 SC 0818 Lisinopril 20 MG DAILY 02/04 1000 AC 02/06 PO 0829 Methylprednisolone 40 MG Q12 02/05 1000 DC 02/06 IV 0820 Metoprolol Succinate 50 MG DAILY 02/04 1000 AC 02/06 PO 0829 Nystatin 1 KENYON BID PRN 02/04 0500 AC TOP Oxycodone/ 1 TAB DAILY PRN 02/04 0730 AC 02/06 Acetaminophen PO 0831 Prednisone 40 MG DAILY 02/07 1000 AC PO Rivaroxaban 20 MG 1800 06 1800 AC 02/06 PO 1733 Sodium Chloride 2 SPRAY Q4P PRN 02/04 1700 AC 02/04 MAURO 1752 Tramadol HCl 50 MG Q8P PRN 02/03 1615 AC 02/06 PO 0315 Last 24 Hrs of Lab/Satish Results Last 24 Hrs of Labs/Mics: Laboratory Tests 02/06/17 0645: Sodium Pending, Potassium Pending, Chloride Pending, Carbon Dioxide Pending, Anion Gap Pending, BUN Pending, Creatinine Pending, BUN/Creatinine Ratio Pending , Magnesium Pending, CBC w Diff Pending, WBC Pending, RBC Pending, Hgb Pending, Hct Pending, MCV Pending, MCH Pending, RDW Pending, Plt Count Pending, MPV Pending, Gran % Pending, Lymphocytes % Pending, Monocytes % Pending, Eosinophils % Pending, Basophils % Pending, Absolute Granulocytes Pending, Absolute Lymphocytes Pending, Absolute Monocytes Pending, Absolute Eosinophils Pending, Absolute Basophils Pending, PUBS MCHC Pending Microbiology 02/05 905 LOWER RESP: Respiratory Culture - COLB 02/05 905 LOWER RESP: Gram Stain - COLB Assessment/Plan Assessment: 61-year-old gentleman with chronic obesity hypoventilation syndrome likely sleep apnea admitted with increasing shortness breath in the setting of volume overload elevated BNP and chest x-ray suggestive of congestive heart failure, hypercarbia, admitted to [facility] for acute on chronic hypoxic and hypercarbic respiratory failure likely secondary to diastolic CHF exacerbation and acute execarbation of COPD. Was started on IV lasix and IV steroids. Assesment and Plan: 1. Acute on chronic hypoxic and hypercarbic respiratory failure, secondary to diastolic CHF exacerbation and acute execarbation of COPD: - The patient was started on Bipap on admission, now off bipap. Initially ABGs showed pCO2 of 66, now resiolved with pCO2 of 56, shortness of breath better after being diuresed and starting on IV Steroids. - BiPAP at night. Pulse ox measurement nocturnal. - Legionella, strep, flu are negative - IV Solumedrol 40 mg Q12 has been changed to po prednisone. - Lasix iv-->po, adequate diuresis so far. - PSYCHIATRIC nebs - Daily weights - Intake & output - Will follow Pulm and Cardio input 2. HTN: - BP has been high, lisinopril was increased to 20 mg Daily yesterday, QUALITY COMPLIANCE MANAGER still high likely due to YULIA. - Will monitor and may increase further - Will follow cardio 3. diabetes - Diabetic diet - ISS, will monitor as the patient is on IV Steroids, and adjust according - ACCUchecks 4. HLD - Continue Atorvastatin (On crestor at home) 5. Afib: - Continue Metoprolol XL 50 mg Po Daily, Cardizem 240 mg Po Daily - COntinue Xarelto 6. pancytopenia -We'll watch with daily CBC, watch for bleeding -NL B12 and folate Problem List: 1. Hypercapnic respiratory failure 2. Respiratory failure Pain Ratin Pain Location: back Pain Goal: Pain 4 or less Pain Plan: tylenol prn Tomorrow's Labs & Rationales: cbc bep Consulting Request: Consulting Specialty: Pulmonary Disease Consulting Physician: Dr. Bennett Reason for Consult: Resp failure
[2017-02-06 09:00] LABS: GRANULOCYTE % 89.4 % (42.2-75.2)
--- NOTE | 2017-02-06 10:43 | PN- Cardiology ---
Subjective Subjective: * Breathing is dramatically improved but patient will become winded with talking. * atrial fibrillation with good rate control Objective Vital Signs and I&Os Vital Signs Date Time Temp Pulse Resp B/P B/P Pulse O2 O2 Flow FiO2 Mean Ox Delivery Rate 02/06 0839 90 Room Air 02/06 0829 90 134/72 02/06 0829 90 134/72 02/06 0800 97.9 98 20 182/92 93 02/06 0037 98 94 02/06 0000 94 BIPAP 35% 02/05 2348 97.9 69 20 96 BIPAP 02/05 2308 84 93 02/05 2230 140/88 02/05 1639 93 Room Air Room Air 02/05 1600 93 Nasal 1.0L Cannula 02/05 1530 97.9 103 16 160/110 93 Nasal 1.0L Cannula Intake & Output 02/06 1600 02/06 0800 05/ 0000 02/05 1600 02/05 0800 02/05 0000 Intake Total 600 600 541 271 5018 Output Total 3000 1350 2800 3000 750 Balance -2400 -750 -2200 -2250 500 Intake, IV 0 0 Intake, Oral 600 600 604 358 1080 Number 0 Bowel Movements Output, Urine 3000 1350 2800 3000 750 Patient 330 lb 339 lb Weight Weight Standing Scale Standing Scale Measurement Method Physical Exam: General: WD/ obese male in NAD; alert and oriented x 3 Neck: obese, no obvious JVD, no carotid bruit Heart: irregularly irregular w/o mumur Lungs: clear bilaterally Abdomen: soft, Obese, NT, +ve bowel sounds Extremities: no edema Assessment/Plan Assessment/Plan * Continue this patient on Lasix 60mg BID but change to oral formulation and continue to monitor. Repeat ABG. * No change in other cardiac medications. Continue telemetry? Yes
[2017-02-06 16:03] VITALS: BP 141/74
--- NOTE | 2017-02-06 17:36 | PN- Att Addend ---
Attending MD Review Statement Attending Statement Attending MD Statement: examined this patient, discuss w/resident/PA/DIESEL MOTOR MECHANIC, agreed w/resident/PA/DIESEL MOTOR MECHANIC, discussed with family, reviewed EMR data (avail), discussed w/ nursing, discussed w/case mgmt Attending Assessment/Plan: Laboratory Tests 02/06/17 0645: Anion Gap 15, Estimated GFR > 60, BUN/Creatinine Ratio 36.3 H, Magnesium 2.1, CBC w Diff NO MAN DIFF REQ, RBC 5.07, MCV 86.2, MCH 27.5, RDW 16.4 H, MPV 9.4, Gran % 89.4 H, Lymphocytes % 7.1 L, Monocytes % 3.2, Eosinophils % 0.3, Basophils % 0 L, Absolute Granulocytes 5.3, Absolute Lymphocytes 0.4 L, Absolute Monocytes 0.2, Absolute Eosinophils 0, Absolute Basophils 0, PUBS MCHC 31.9 L Vital Signs Date Time Temp Pulse Resp B/P B/P Pulse O2 O2 Flow FiO2 Mean Ox Delivery Rate 02/06 1603 98.9 93 20 141/74 93 Nasal Cannula 02/06 09 93 Nasal 1.0L Cannula 02/06 0839 90 Room Air 02/06 0829 90 134/72 02/06 0829 90 134/72 02/06 0800 93 Nasal 1.0L Cannula 02/06 0800 97.9 98 20 182/92 93 02/06 0037 98 94 05/08 0000 94 BIPAP 35% 02/05 2348 97.9 69 20 96 BIPAP 02/05 2308 84 93 02/05 2230 140/88 Patient seen and examined at bedside. Discussed with patient the care plan. Discussed with patient's family the care plan. Patient admitted with the hypercarbic respiratory failure secondary to COPD as well as obesity hypoventilation syndrome and possibly underlying sleep apnea. Patient doing better on nocturnal BiPAP. Also had CHF exacerbation likely diastolic acute CHF. Underwent diuresis and is doing better. Disposition plan is to discharge the patient home on oral Lasix as well as try to arrange BiPAP for him prior to discharge given his obesity hypoventilation syndrome and underlying sleep apnea. Discussed with case fitter and they're to work on arranging the BiPAP for him.
--- NOTE | 2017-02-06 18:30 | NUR ---
HYPERGLYCEMIA: LATE ENTRY NOTIFIED BY [facility] ACCUCHECK WAS 451 AT 11:[address] MULTANI MADE AWARE. MEDS PER EMAR WHEN LUNCH TRAY ARRIVED. PT C/O BLURRY VISION. DR MULTANI MADE AWARE. UPON REASSESSMENT ACCUCHECK WAS 396 AT 14:15 PM. RECHECK AT 14:[address] MULTANI MADE AWARE. WILL REASSESS AT DINNER TIME.
[2017-02-07 00:54] VITALS: BP 148/92
--- NOTE | 2017-02-07 06:18 | Discharge Summary ---
Visit Information Visit Dates Admission Date: 02/03/17 Discharge Date: 02/07/17 Hospital Course Course Attending Physician: TANIKA BRADSHAW,VALERIA Primary Care Physician: OLGA PATEL DO Consulting Request: Consulting Specialty: Pulmonary Disease Consulting Physician: Dr. Bennett Reason for Consult: Resp failure Hospital Course: Mr Saab is a 61 yr old man with a past medical history of atrial fibrillation ( on DOAC ), hypertension, obstructive sleep apnea( formal sleep study not done ), obesity, gout, diabetes who was evaluated when his PCP informed him that he was hypoxemic. He also complained of worsenign shortness of breath, and pedal edema x 2 wks prior to admission. At the time of admission, vitals-temperature 90.7, pulse rate 79, respiratory rate of 20, blood pressure 172/74, 95% on 3 L (patient does not use any home oxygen). Lab findings indicated WBC 4.6, hemoglobin 12.7 (baseline 14), platelets 92 (baseline 111, very low-reason unclear), normal electrolytes sodium 143, potassium 4.9, bicarbonate 33 (high-likely metabolic compensation for chronic respiratory acidosis), normal renal function BUN 22, serum creatinine 0.8. ProBNP slightly elevated 1770, INR 1.47, blood gas-pH 7.32, PCO2 66. HbA1c 4.9 (2016) Chest x-ray revealed findings consistent with mild CHF. Last echocardiogram done on 01/16/2017 revealed left ventricle ejection fraction of 65%, right ventricular pressure 28%. ABG at the time of admission- pH 7.32, pCO2 66, pO2 96, which improved to pH 7.4 , pCO2 56, pO2 63 post BiPAP therapy. Nocturnal BiPAP was continued, while the pt was admitted in the hospital. Differential diagnosis: #1 hypoventilation syndrome #2 CHF #3 COPD #4 opiate Overuse Below is the problem list and plan: #1 hypoxemia, shortness of breath-likely multifactorial likely hypoventilation syndrome from obesity, CHF, and opiate use. Pt was continued of BiPAP, which led to improvement in hypercarbia. CHF was likely contributing to symptoms, and hence was continued on IV furosemide, which resulted in more than 10L of diuresis. He was also treated w/ iv solumedrol, which was tapered to po prednisone. TRC, albuterol/ipratropium was provided as needed. #2 [id number]. Continued on NovoLog sliding scale. HbA1c was 4.9, and hyperglycemic episodes were largely attributed to prednisone. Pt was continued on bolus insulin, and no basal insulin was added to the treatment. #3 atrial fibrillation-continued on Xarelto and Cardizem and metoprolol, as per cardilogy. Pt was monitored on telemetry, with no notable events. BP was slightly elevated, which was likely from YULIA. Tx w/ lisinopril and metoprolol. #4 anemia, thrombocytopenia- likely nutritional or chronic hypoxemia. No history of heavy alcohol use. Work up as an outpatient. #5 Obesity- Nutrional consult was obtained. Discussed about life style changes. Pt to get outpatient sleep study done. TO follow up with the pcp. Allergies: Coded Allergies: No Known Allergies (01/15/16) Pertinent Lab Results: RAD - XRY-PORTABLE CHEST XRAY 02/03/17-1300 1. Enlarged cardiomediastinal silhouette with mild pulmonary venous hypertension, consistent with mild CHF. 2. Possible artifacts versus airspace disease at right lower lung field. Disposition Summary Disposition Principal Diagnosis: Obesity hypoventation syndrome Additional Diagnosis: CHF exacerbation Discharge Disposition: home or self care Discharge Instructions General Discharge Information Code Status: Full Code Patient's Diet: heart healthy diet Patient's Activity: as tolerated Follow-Up Instructions/Appts: 1. Follow up with your PCP 2. Schedule the sleep study as soon as possible 3. Lifestyle modification Medications at Discharge Discharge Medications: Stop taking the following medications: Furosemide (Furosemide) 40 MG TABLET ORAL DAILY Qty = 7 Lisinopril (Lisinopril) 5 MG TABLET ORAL DAILY Qty = 30 Continue taking these medications: Metformin Hydochloride (Glucophage) 500 MG TABLET 1 Tablet ORAL TWICE DAILY Comments: NOT GIVEN IN HOSPITAL Rosuvastatin Calcium (Crestor) 20 MG TABLET 1 Tablet ORAL DAILY Comments: Last Taken: 02/06/17 Time: 5PM PT GIVEN LIPITOR Rivaroxaban (Xarelto) 20 MG TABLET 1 Tablet ORAL DAILY Days = 30 Instructions: with food Comments: Last Taken: 02/06/17 Time: 5PM Colchicine (Colchicine) 0.6 MG TABLET 1 Tablet ORAL EVERY 6 HOURS NEEDED as needed for GOUT Qty = 15 Comments: NOT GIVEN IN HOSPITAL Diltiazem HCl (Diltiazem 24HR ER) 240 MG CAP.ER.24H 1 Capsule ORAL DAILY Qty = 30 Comments: Last Taken: 02/07/17 Time: 9AM Gabapentin (Gabapentin) 100 MG CAPSULE 2 Capsule ORAL TWICE DAILY Qty = 120 Comments: NOT GIVEN IN HOSPITAL Metoprolol Succinate (Metoprolol Succinate) 50 MG TAB.ER.24H 1 Tablet ORAL DAILY Qty = 90 Comments: Last Taken: 02/07/17 Time: 9AM Oxycodone HCl/Acetaminophen (Oxycodone-Acetaminophen 10-325) 10 MG-325 MG TABLET 1 Tablet ORAL EVERY 4 HOURS NEEDED as needed for PAIN Qty = 120 Comments: Last Taken: 02/07/17 Time: 11:30AM Albuterol Sulfate (Proair Hfa) 90 MCG HFA.AER.AD 2 Puff Inhale through mouth EVERY 4 HOURS NEEDED as needed for SHORTNESS OF BREATH Qty = 17 Comments: Last Taken: 02/07/17 Time: 9AM Start taking the following new medications: Lisinopril (Lisinopril) 20 MG TABLET 20 Milligram ORAL DAILY Qty = 30 No Refills Comments: Last Taken: 02/07/17 Time: 9AM Guaifenesin (Guaifenesin) 100 MG/5 ML LIQUID 10 Milliliters ORAL EVERY 4 HOURS NEEDED as needed for COUGH Days = 14 No Refills Comments: NOT GIVEN IN HOSPITAL Sodium Chloride ([place]) 0.65 % SPRAY 2 [place] In the nose EVERY 4 HOURS NEEDED as needed for CONGESTION Days = 10 No Refills Comments: NOT GIVEN IN HOSPITAL Furosemide (Furosemide) 20 MG TABLET 60 Milligram ORAL 7:30AM & 4:30PM Qty = 28 No Refills Comments: Last Taken: 02/07/17 Time: 8AM Prednisone (Prednisone) 10 MG TABLET 1 Tablet ORAL SEE INSTRUCTIONS Qty = 26 No Refills Instructions: TAKE 4 TABLETS FOR 2 DAYS THEN 3 TABLEST FOR 3 DAYS THEN 2 TABLET FOR 3 DAYS THEN 1 TABLET FOR 3 DAYS, THEN STOP Comments: Last Taken: 02/07/17 Time: 9AM Copies To: OLGA PATEL DO, MD Review Statement Documenting Attending: TANIKA BRADSHAW,VALERIA
[2017-02-07 08:00] VITALS: BP 132/80
--- NOTE | 2017-02-07 08:23 | PN- Pulmonary ---
Subjective HPI/Critical Care Issues: Patient feels improved as he continues to diurese room air oxygen saturations are improved at rest Objective Current Medications: Current Medications Sig/Kendra Start time Last Medication Dose Route Stop Time Status Admin Acetaminophen 1,000 MG Q8P PRN 02/03 1615 AC 02/07 N/A 1 UNIT IV 0549 Albuterol Sulfate 3 ML Q4-PRN PRN 02/03 2215 AC 02/06 INH 1437 Atorvastatin Calcium 80 MG 1700 02/05 1700 AC 02/06 PO 1733 Diltiazem HCl 240 MG DAILY 02/04 1000 AC 02/06 PO 0828 Docusate Sodium 100 MG BID 02/04 1112 AC 02/04 PO 1230 Furosemide 60 MG 7:30 AM, & 4:30 PM 02/06 1630 AC 02/06 PO 1545 Furosemide 60 MG BID 02/04 1000 DC 02/06 IV 0822 Guaifenesin 600 MG Q12 02/05 1000 AC 02/06 PO 2112 Guaifenesin 10 ML Q4P PRN 02/05 0915 AC PO Insulin Aspart 0 TIDAC 02/06 1200 AC 02/06 SC 1734 Insulin Aspart 0 TIDAC 02/03 1700 DC 02/06 SC 0818 Lisinopril 20 MG DAILY 02/04 1000 AC 02/06 PO 0829 Methylprednisolone 40 MG Q12 02/05 1000 DC 02/06 IV 0820 Metoprolol Succinate 50 MG DAILY 02/04 1000 AC 02/06 PO 0829 Nystatin 1 KENYON BID PRN 02/04 0500 AC TOP Oxycodone/ 1 TAB DAILY PRN 02/04 0730 AC 02/06 Acetaminophen PO 0831 Prednisone 40 MG DAILY 02/07 1000 AC PO Rivaroxaban 20 MG 1800 02/04 1800 AC 02/06 PO 1733 Sodium Chloride 2 SPRAY Q4P PRN 02/04 1700 AC 02/04 MAURO 1752 Tramadol HCl 50 MG Q8P PRN 02/03 1615 AC 02/07 PO 0211 Vital Signs & I&O Last 24 Hrs of Vitals and I&O: Vital Signs Date Time Temp Pulse Resp B/P B/P Pulse O2 O2 Flow FiO2 Mean Ox Delivery Rate 02/07 0328 92 Room Air 02/07 0054 98.4 97 20 148/92 95 Room Air 02/07 0000 93 Room Air 02/06 1848 94 Room Air Room Air 02/06 1847 95 Room Air Room Air 02/06 1603 98.9 93 20 141/74 93 Nasal Cannula 02/06 900 93 Nasal 1.0L Cannula 02/06 0839 90 Room Air 02/06 08 90 134/72 02/06 0829 90 134/72 Intake & Output 02/07 1600 02/07 0800 02/07 0000 Intake Total 240 300 Output Total 500 1600 Balance -260 -1300 Intake, Oral 240 300 Output, Urine 500 1600 Impression/Plan Impression/Plan Impression/Plan: 61-year-old gentleman who has chronic obesity alveolar hypoventilation likely sleep apnea admitted with increasing shortness breath in the setting of volume overload elevated BNP and chest x-ray suggestive of congestive heart failure. Arterial blood gases appear back to baseline with normal pH. Respiratory status is improved with diuresis of 9 lRoom air oxygen saturation 92% Recommendations: Assess oxygen saturations with ambulation. Patient will need outpatient pulmonary function tests and sleep study post discharge. If possible. Benefit with nasal BiPAP pending his sleep study
[2017-02-07 08:29] LABS: ABSOLUTE BASOPHIL COUNT 0 /CUMM (0.0-0.2); ABSOLUTE EOSINOPHIL COUNT 0 /CUMM (0.0-0.7); ABSOLUTE LYMPH COUNT 1.5 /CUMM (1.2-3.4); ABSOLUTE MONOCYTE COUNT 0.6 /CUMM (0.10-0.60); BASOPHIL % 0.2 % (0.0-2.0); EOSINOPHIL % 0 % (0-5); GRANULOCYTE % 73.7 % (42.2-75.2); HEMATOCRIT 46.1 % (42-52); MEAN CORPUSCULAR HGB 27.8 PG (27.0-31.0); MEAN CORPUSCULAR HGB CONC 32.6 G/DL (33.0-37.0); MEAN CORPUSCULAR VOLUME 85.4 FL (80.0-94.0); MEAN PLATELET VOLUME 9.1 FL (7.4-10.4); PLATELET COUNT 129 /CUMM (130-400); RBC DISTRIBUTION WIDTH 15.9 % (11.5-14.5); RED BLOOD CELL CT 5.39 /CUMM (4.70-6.10); WHITE BLOOD CELL COUNT 8.1 /CUMM (4.8-10.8)
--- NOTE | 2017-02-07 09:52 | PN- Housestaff ---
MARILYNN BRADSHAW,[facility] 02/07/17 0952: Subjective Follow-up For: Acute resp failure Subjective: Pt seen and examined at [facility]. Does not endorse any acute complain including shortness of breath.chest pain/palpitation,fever/chills. No acute o/n event reported by nursing staff. Review of Systems Constitutional: Reports: no symptoms. Objective Last 24 Hrs of Vital Signs/I&O Vital Signs Date Time Temp Pulse Resp B/P B/P Pulse O2 O2 Flow FiO2 Mean Ox Delivery Rate 02/07 1549 98.5 80 18 140/90 93 Room Air 02/07 1001 96 132/80 02/07 1001 96 132/80 02/07 0829 91 Room Air Room Air 02/07 0800 Room Air 02/07 0800 97.8 96 20 132/80 92 Room Air Intake & Output 02/08 0800 02/08 0000 02/07 1600 Intake Total 790 Output Total Balance 790 Intake, IV 10 Intake, Oral 780 Physical Exam General Appearance: Alert, Oriented X3, Cooperative Assessment/Plan Assessment: 61-year-old gentleman with chronic obesity hypoventilation syndrome likely sleep apnea admitted with increasing shortness breath in the setting of volume overload elevated BNP and chest x-ray suggestive of congestive heart failure, hypercarbia, admitted to [facility] for acute on chronic hypoxic and hypercarbic respiratory failure likely secondary to diastolic CHF exacerbation and acute execarbation of COPD. Was started on IV lasix and IV steroids. Assesment and Plan: 1. Acute on chronic hypoxic and hypercarbic respiratory failure, secondary to diastolic CHF exacerbation and acute execarbation of COPD: - The patient was started on Bipap on admission, now off bipap. Initially ABGs showed pCO2 of 66, now resiolved with pCO2 of 56, shortness of breath better after being diuresed and starting on IV Steroids (now on prednisone 40mg). Nocturnal pulse oximetry was suggestive of YULIA. Pt is stable for discharge today. ABG obtaine today showed co2 of 57, pt will need home nasal CPAP. Will also discharge with prednisone taper and f/u instruction for an out/pt sleep study. Will also discharge with lasix 60 mg po bid per cardiology (pt will f/u with Dr Cevallos within 1 week) - 2. HTN: - BP has been high, lisinopril was increased to 20 mg Daily yesterday, TAPE EDITOR still high likely due to YULIA. - Will monitor and may increase further - Will follow cardio 3. diabetes - Diabetic diet - ISS, will monitor as the patient is on IV Steroids, and adjust according - ACCUchecks 4. HLD - Continue Atorvastatin (On crestor at home) 5. Afib: - Continue Metoprolol XL 50 mg Po Daily, Cardizem 240 mg Po Daily - COntinue Xarelto 6. pancytopenia -We'll watch with daily CBC, watch for bleeding -NL B12 and folate Problem List: 1. Hypercapnic respiratory failure Pain Ratin Pain Location: generalized Pain Goal: Pain 4 or less Pain Plan: per pain pathway Tomorrow's Labs & Rationales: none-discharge Consulting Request: Consulting Specialty: Pulmonary Disease Consulting Physician: Dr. Bennett Reason for Consult: Resp failure TANIKA BRADSHAW,[facility] 02/07/17 1523: Attending MD Review Statement Attending Statement Attending MD Statement: examined this patient, discuss w/resident/PA/TAPE EDITOR, agreed w/resident/PA/TAPE EDITOR, reviewed EMR data (avail), discussed with nursing, discussed with case mgmt, reviewed images, amended to note Attending Assessment/Plan: Patient seen and examined the overall feeling much better. Patient needs BiPAP and currently waiting for insurance approval for the BiPAP. He has been switched to oral prednisone and oral diuretics and from medical standpoint he is stable for discharge as far as his BiPAP can be approved by his insurance. Once that happens, patient will be discharged home today. He will follow-up with his primary care doctor, unknown origin as well as cardiology as an outpatient. We confirmed with Dr. Cevallos and he wants to continue Current dose of Lasix 60 mg by mouth twice a day and follow-up with Dr. Scott in 1 week.
--- NOTE | 2017-02-07 11:27 | Patient Discharge Instructions ---
Discharge Instructions General Discharge Information You were seen/treated for: Respiratory failure Conhestive heart failure Special Instructions: Please seek medical attention if you have increased shortness of breath Please follow up with your primary care within 1 week Please follow up with Dr Espinoza (lung doctor) within 1 week to schedule sleep study Please follow up with your Dr Cevallos (pollution control engineer) within 1 week Acute Coronary Syndrome Inclusion Criteria At DC or during hospital stay patient has or had the following: ACS DIAGNOSIS No Discharge Core Measures Meds if any: Prescribed or Continued at Discharge Meds if any: NOT Prescribed or Continued at Discharge Congestive Heart Failure Inclusion Criteria At DC or during hospital stay patient has or had the following: CHF DIAGNOSIS No Discharge Core Measures Meds if any: Prescribed or Continued at Discharge Meds if any: NOT Prescribed or Continued at Discharge Cerebrovascular accident Inclusion Criteria At DC or during hospital stay patient has or had the following: CVA/TIA Diagnosis No Discharge Core Measures Meds if any: Prescribed or Continued at Discharge Meds if any: NOT Prescribed or Continued at Discharge Venous thromboembolism Inclusion Criteria VTE Diagnosis No VTE Type NONE VTE Confirmed by (Test) NONE Discharge Core Measures - Per Current guidelines, there needs to be overlap - treatment for the first 5 days of Warfarin therapy. - If discharged on Warfarin prior to 5 days of - overlap therapy, the patient will need to be - assessed for post discharge needs including - *Post discharge parental anticoagulation - *Warfarin and/or parental anticoagulation education - *Follow up date to check INR post discharge At least 5 days overlap therapy as Inpatient No Meds if any: Prescribed or Continued at Discharge Note: Overlap Therapy is Warfarin and Anticoagulant Meds if any: NOT Prescribed or Continued at Discharge
--- NOTE | 2017-02-07 14:34 | PN- Cardiology ---
Subjective Subjective: * Breathing is improved. * atrial fibrillation with good rate control Objective Vital Signs and I&Os Vital Signs Date Time Temp Pulse Resp B/P B/P Pulse O2 O2 Flow FiO2 Mean Ox Delivery Rate 02/07 1001 96 132/80 02/07 1001 96 132/80 02/07 0829 91 Room Air Room Air 02/07 0800 Room Air 02/07 0800 97.8 96 20 132/80 92 Room Air 02/07 0328 92 Room Air 02/07 0054 98.4 97 20 148/92 95 Room Air 02/07 0000 93 Room Air 02/06 1848 94 Room Air Room Air 02/06 1847 95 Room Air Room Air 02/06 1603 98.9 93 20 141/74 93 Nasal Cannula Intake & Output 02/07 1600 02/07 0802/07 0000 02/06 1600 02/06 0800 02/06 0000 Intake Total 240 300 960 600 600 Output Total 500 1600 2650 3000 1350 Balance -260 -1300 -1690 -2400 -750 Intake, Oral 240 300 960 600 600 Output, Urine 500 1600 2650 3000 1350 Patient 330 lb 330 lb Weight Weight Standing Scale Measurement Method Physical Exam: General: WD/ obese male in NAD; alert and oriented x 3 Neck: obese, no obvious JVD, no carotid bruit Heart: irregularly irregular w/o mumur Lungs: clear bilaterally Abdomen: soft, Obese, NT, +ve bowel sounds Extremities: no edema Assessment/Plan Assessment/Plan * Continue this patient on Lasix 60mg PO BID. * No change in other cardiac medications. * Okay for discharge from a cardiac standpoint with follow up in office in one week. Continue telemetry? No
[2017-02-07] MEDS ORDERED: FUROSEMIDE20 M1 PO (14:42)
[2017-02-07] MEDS ORDERED: PREDNISONE10 M2 PO (15:29)
[2017-02-07 15:49] VITALS: BP 140/90
== END 2017-02-07 16:48 | DRG 194 ==
LOC: ERH 12:47 → 1NO 14:43 → ERHI 14:43 → ENRESERV 14:56 → 1NO 17:13
PROVIDERS: Emergency Medicine; Internal Medicine; Internal Medicine Endocrinology, Diabetes & Metabolism; Student in an Organized Health Care Education/Training Program; ADMIT Internal Medicine
DX: I11.0 Hypertensive heart disease with heart failure (principal); J96.02 Acute respiratory failure with hypercapnia; J96.01 Acute respiratory failure with hypoxia; D61.818 Other pancytopenia; E66.2 Morbid (severe) obesity with alveolar hypoventilation; Z79.01 Long term (current) use of anticoagulants; I50.33 Acute on chronic diastolic (congestive) heart failure; E11.9 Type 2 diabetes mellitus without complications; E78.5 Hyperlipidemia, unspecified; M10.9 Gout, unspecified; F17.200 Nicotine dependence, unspecified, uncomplicated; Z79.84 Long term (current) use of oral hypoglycemic drugs; I48.0 Paroxysmal atrial fibrillation
CPT/HCPCS: 1NP; 36415; 82436; 87070; 87086; 87449; 87450; 87804; 87804-59; 93005; 93010; 96374; 96375; 97161-GP; 97530-GO; 99291; J0131; J1940; J2920; J2930; J3490

== ENCOUNTER 2018-06-22 16:21 | Emergency (ER) | payer OTHER ==
[~2018-06-22] VITALS: Ht 182.9 cm; Wt 149.7 kg
[~2018-06-22 16:21] MED LIST changes: +DEEP SEA44 ML NAS; +DILTIAZEM 24HR240 MG PO; +FUROSEMIDE20 M1 PO; +FUROSEMIDE40 M1 PO; +GABAPENTIN100 M2 PO; +GUAIFENESI100 MG/5 M PO; +LISINOPRIL20 M1 PO; +LISINOPRIL5 M1 PO; +METOPROLOL SUCC50 M2 PO; +OXYCODONE-ACET1 EAC1 PO; +PREDNISONE10 M2 PO; +PROAIR HFA8.5 GM INH
--- NOTE | 2018-06-22 17:41 | ED DYSPNEA/ASTHMA COMPLAINT ---
History of Present Illness General Chief Complaint: General Adult Stated Complaint: "R LEG SWOLLEN, CANT KEEP UP WITH MEDS" PER PT Source: patient Exam Limitations: no limitations Vital Signs & Intake/Output Vital Signs & Intake/Output Vital Signs Date Time Temp Pulse Resp B/P B/P Pulse O2 O2 Flow FiO2 Mean Ox Delivery Rate 06/22 2119 90 24 178/101 95 Room Air 06/22 2017 98.1 88 20 180/100 92 Room Air 06/22 1758 96 Room Air Room Air 06/22 1628 96.9 84 18 163/98 94 Room Air ED Intake and Output 06/23 0000 06/22 1200 Intake Total Output Total Balance Patient 330 lb Weight Weight Reported by Patient Measurement Method Allergies Coded Allergies: No Known Allergies (01/15/16) Reconcile Medications Albuterol Sulfate (Proair Hfa) 90 MCG HFA.AER.AD 2 PUF INH Q4P PRN SHORTNESS OF BREATH (Reported) Colchicine 0.6 MG TABLET 1 TAB PO Q6-PRN PRN GOUT (Reported) Diltiazem HCl (Diltiazem 24HR ER) 240 MG CAP.ER.24H 1 CAP PO DAILY HEART ( Reported) Furosemide 20 MG TABLET 60 MG PO 7:30 AM, & 4:30 PM swelling Gabapentin 100 MG CAPSULE 2 CAP PO BID UNKNOWN (Reported) Guaifenesin 100 MG/5 ML LIQUID 10 ML PO Q4P PRN COUGH Lisinopril 20 MG TABLET 20 MG PO DAILY high blood pressure Losartan Potassium 50 MG TABLET 1 TAB PO DAILY HTN (Reported) Metformin Hydochloride (Glucophage) 500 MG TABLET 1 TAB PO BID DIABETES ( Reported) Metoprolol Succinate 50 MG TAB.ER.24H 1 TAB PO DAILY HEART (Reported) Oxycodone HCl 15 MG TABLET 1 TAB PO 4XDP PAIN (Reported) Oxycodone HCl/Acetaminophen (Oxycodone-Acetaminophen 10-325) 10 MG-325 MG TABLET 1 TAB PO Q4P PRN PAIN (Reported) Prednisone 10 MG TABLET 1 TAB PO SEE ADMIN CRITERIA RESPIRATORY TAKE 4 TABLETS FOR 2 DAYS THEN 3 TABLEST FOR 3 DAYS THEN 2 TABLET FOR 3 DAYS THEN 1 TABLET FOR 3 DAYS, THEN STOP Rivaroxaban (Xarelto) 20 MG TABLET 1 TAB PO DAILY BLOOD THINNER (Reported) with food Rosuvastatin Calcium (Crestor) 20 MG TABLET 1 TAB PO DAILY CHOLESTEROL ( Reported) Sodium Chloride (Deep Sea) 0.65 % SPRAY 2 SPRAY MAURO Q4P PRN CONGESTION Triage Note: 62 Y/O MALE C/O BILATERAL SWOLLEN EXTREMITIES (R>L) AND EXERTIONAL SOB SINCE YESTERDAY. TOOK "WATER PILLS" WITH NO RELIEF OF SYMPTOMS. DENIES CHEST PAIN. DENIES SOB AT PRESENT. SWELLING NOTED TO RLE. MOHAMUDAL'D BY SATYA BLOCK Triage Nurses Notes Reviewed? yes Onset: Abrupt Duration: day(s): (2), constant, continues in ED, getting worse Timing: single episode today Severity: mild, moderate Activities at Onset: activity Prior Episodes/Possible Cause: frequent episodes Associated Symptoms: weakness HPI: 62-year-old male history of atrial fibrillation, hypertension, morbid obesity, diabetes, CHF presents for evaluation of shortness of breath and lower extremity edema. Patient reports that over the past 2-3 days he has had gradually worsening lower extremity edema and shortness of breath. The shortness of breath is present mostly on exertion. He states unable to walk more than 10 steps without a take a break. This is abnormal for him. He denies any chest pain or hemoptysis. He does report that the swelling is worse in the right lower extremity compared to left. He denies coughing fevers nausea vomiting sweats or chills. He is prescribed Lasix but is noncompliant with it he states he takes it when he needs it. According to his niece he is very noncompliant with his diet and most of his medications. NO CHEST PAIN (Roderick Manzo) Past History Travel History Traveled to [place] past 21 day No Medical History Any Pertinent Medical History? see below for history Neurological: NONE EENT: NONE Cardiovascular: AFIB, hypertension, hyperlipidemia Respiratory: NONE Gastrointestinal: NONE Hepatic: NONE Renal: NONE Musculoskeletal: NONE Psychiatric: NONE Endocrine: DIABETIC Blood Disorders: NONE Cancer(s): NONE EMERGENCY MANAGEMENT SYSTEM DIRECTOR/Reproductive: NONE History of MRSA: No History of VRE: No History of CDIFF: No Surgical History Surgical History: HARDWARE IN BOTH HIPS Psychosocial History Who do you live with Sister Services at Home None What is your primary language Japanese Tobacco Use: Quit >30 days ago Family History Hx Contributory? No (Roderick Manzo) Medical History Cardiovascular: CHF (Madelyn BRADSHAW,Og Collado) Review of Systems Review of Systems Constitutional: Reports: weakness. EENTM: Reports: no symptoms. Respiratory: Reports: see HPI, short of breath. Cardiovascular: Reports: peripheral edema. GI: Reports: no symptoms. Genitourinary: Reports: no symptoms. Musculoskeletal: Reports: no symptoms. Skin: Reports: no symptoms. Neurological/Psychological: Reports: no symptoms. Hematologic/Endocrine: Reports: no symptoms. Immunologic/Allergic: Reports: no symptoms. All Other Systems: Reviewed and Negative (Roderick Manzo) Physical Exam Physical Exam General Appearance: well developed/nourished, no apparent distress, alert, awake , intoxicated Head: atraumatic, normal appearance Eyes: Bilateral: normal appearance, PERRL, EOMI. Ears, Nose, Throat: normal pharynx, normal ENT inspection, hearing grossly normal Neck: normal inspection, supple, full range of motion Respiratory: normal breath sounds, chest non-tender, no respiratory distress, lungs clear Cardiovascular: regular rate/rhythm, normal peripheral pulses Peripheral Pulses: 2+ radial (R), 2+ radial (L) Gastrointestinal: soft, non-tender Extremities: BILATERAL LOWER EXTREMITY EDEMA WITHOUT PITTING. RIGHT WORSE THAN LEFT Neurologic/Psych: no motor/sensory deficits, awake, alert, oriented x 3 Skin: intact, normal color, warm/dry Lymphatic: no anterior cervical abby Core Measures ACS in differential dx? No CVA/TIA Diagnosis No Sepsis Present: No Sepsis Focused Exam Completed? No (Roderick Manzo) Progress Differential Diagnosis: asthma, AMI, bronchitis, costochondritis, CHF, COPD, pulmonary embolism, pneumonia, pneumothorax, rib fracture, unstable angina Plan of Care: Orders Procedure Date/time Status ARTERIAL BLOOD GAS (GEN) 06/22 2009 Complete TROPONIN LEVEL 06/22 1630 Complete COMPREHENSIVE METABOLIC PANEL 06/22 1630 Complete CBC WITHOUT DIFFERENTIAL 06/22 1630 Complete B-TYPE NATRIURETIC PEP (BNP) 06/22 1630 Complete EKG 06/22 1630 Active Current Medications Sig/Kendra Start time Last Medication Dose Stop Time Status Admin Furosemide 40 MG ONCE ONE 06/22 1815 CAN (Lasix) 06/22 181 Laboratory Tests 06/22/182028: pH 7.40, pCO2 56 H, pO2 68 L, HCO3 33 H, ABG O2 Sat (Measured) 91.0 L, Carboxyhemoglobin 1.8, O2 Concentration % RA, Temperature 98.1, O2 Delivery Method RA, Phlebotomy Draw Site RIGHT RADIAL 06/22/18 1744: Anion Gap 5, Estimated GFR > 60, BUN/Creatinine Ratio 25.6 H, Glucose 157 H, Calcium 8.5, Total Bilirubin 0.5, AST 25, ALT 36, Alkaline Phosphatase 57, Troponin I < 0.01, Zib-N-Hifcfmlojrz Pept 1140 H, Total Protein 6.7, Albumin 3.7, Globulin 3.0, Albumin/Globulin Ratio 1.2, CBC w Diff NO MAN DIFF REQ, RBC 4.14 L, MCV 86.8, MCH 28.0, MCHC 32.3 L, RDW 17.5 H, MPV 10.4, Gran % 58.0, Lymphocytes % 31.0, Monocytes % 8.3, Eosinophils % 2.2, Basophils % 0.5, Absolute Granulocytes 2.3, Absolute Lymphocytes 1.2, Absolute Monocytes 0.3, Absolute Eosinophils 0.1, Absolute Basophils 0 Patient is here for evaluation of shortness breath on exertion and lower extremity edema. He has no chest pain. On exAM his vital signs are stable. He is satting 94% on room air. Labs ultrasound chest x-ray ordered. Chest x-ray is read as unremarkable ultrasound is negative. Labs are still pending. Patient will be signed out to physician ophthalmic medical assistant Lizz Godinez pending labs and disposition. (Roderick Manzo) July 22, 2018 at 9:27 PM Patient signed out to me by SATYA Block. Patient is a 62-year-old male with a history of CHF and A. fib who presented with dyspnea on exertion and worsening of his chronic bilateral lower extremity edema, with right greater than left. States that he has been taking his Lasix without relief. He had a duplex ultrasound performed that ruled out DVT. His BNP was elevated to 1100, which was improved from prior, and additionally his chest x-ray showed no signs of volume overload. His EKG showed rate controlled A. fib and his troponin was negative. He denies any chest pain. Patient is able to ambulate without any signs of respiratory distress. His ambulatory O2 sat is between 93-95% on room air with no signs of labored breathing. Patient is a chronic CO2 retainer, ABG today shows a pH of 7.4, low concern for acute retention. Discussed with Dr. Fierro and the patient will follow up as an outpatient. He was offered Lasix in the emergency department, but declining as he states that he does not want to be persistently getting up to go to the bathroom. He states that he will take his Lasix once he returns home. The patient's labs also showed pancytopenia with worsening thrombocytopenia. Discussed possible admission with the hospitalist who recommended outpatient workup. This plan was discussed with the ED attending who saw and evaluated the patient. We will proceed with outpatient workup at this time. In regards to his pancytopenia infectious neutropenia, symptomatic anemia, thrombocytopenia less than 10, DIC, abnormal peripheral blood smear, aplastic anemia, hemophagocytic lymphohistiocytosis, and metabolic emergencies were considered, but there is low concern at this time. Patient has been afebrile. He will follow-up with Dr. Fish as an outpatient. Upon discharge patient was noted to be hypertensive with systolic blood pressure in the 170s and diastolic pressure of 100. He denies any symptoms such as headache, visual changes, chest pain. He has not yet taken his antihypertensives for the day and will take these once he returns home. Patient was counseled on strict return precautions. Karyna Godinez PA-C (Karyna Davenport) Diagnostic Imaging: Viewed by Me: Radiology Read, Ultrasound. Discussed w/RAD: Radiology Read, Ultrasound. Radiology Impression: PATIENT: KATH NEGRON PRESENT AGE: 62 PATIENT ACCOUNT NO: [id number] : 57 LOCATION: [facility] ORDERING PHYSICIAN: Roderick HERNADEZ SERVICE DATE: 06/22/18 EXAM TYPE: RAD - XRY-PORTABLE CHEST XRAY EXAMINATION: CHEST 1 VIEW CLINICAL INFORMATION: Shortness of breath. Edema. COMPARISON: 03/24/2017. TECHNIQUE: An AP view of the chest is provided. FINDINGS: Evaluation is limited due to the patient's extreme body habitus. The cardiac silhouette is not enlarged. The mediastinal and hilar contours are unremarkable. There are neither pleural effusions nor pneumothoraces. There are no consolidations. The osseous structures are stable. IMPRESSION: No evidence for acute disease. DICTATED BY: Maxi Russell MD DATE/ TIME DICTATED:06/22/181805 ELECTRIC NEEDLE SPECIALIST:ADELAIDA DATE/TIME TRANSCRIBED: 06/22/181805 CONFIDENTIAL, DO NOT COPY WITHOUT APPROPRIATE AUTHORIZATION. < Electronically signed in Other Vendor System> SIGNED BY: Maxi Russell MD 06/22/181809, PATIENT: KATH NEGRON PRESENT AGE: 62 PATIENT ACCOUNT NO: [id number] : 57 LOCATION: [facility] ORDERING PHYSICIAN: Karyna HERNADEZ SERVICE DATE: 06/22/18 EXAM TYPE: US - US-EXT BILAT VENOUS DOPPLER EXAMINATION: US TRIPLEX OF LOWER EXTREMITIES, BILATERAL CLINICAL INFORMATION: Bilateral lower extremity edema and swelling. COMPARISON: None TECHNIQUE: Color-flow triplex imaging with spectral analysis and compression Doppler were performed on the lower extremities. FINDINGS: Respiratory variation , normal compression and augmented flow are noted throughout the lower extremities. The visualized common femoral vein, superficial femoral vein, profunda femoral vein, popliteal vein and midcalf peroneal and posterior tibial venous segments show no evidence of deep venous thrombosis. There is a right- sided popliteal fossa Goel's cyst. It measures 2.6 x 1.0 x 0.8 cm. IMPRESSION: No evidence of deep venous thrombosis involving the bilateral lower extremities. 2.6 cm right-sided popliteal fossa Goel's cyst. DICTATED BY: Maxi Russell MD DATE/TIME DICTATED:06/22/181755 ELECTRIC NEEDLE SPECIALIST:ADELAIDA DATE/TIME TRANSCRIBED:06/22/181755 CONFIDENTIAL, DO NOT COPY WITHOUT APPROPRIATE AUTHORIZATION. <Electronically signed in Other Vendor System> SIGNED BY: Maxi Russell MD 06/22/181800 Initial ED EKG: AFIB (RATE CONTROLED), nonspecific ST T wave chg (INFERIOR UNCHANGED ) Prior EKG: unchanged Hand-Off Endorsed To: Karyna Davenport Endorsed Time: 1823 Pending: labs (Roderick Manzo) Departure Departure Condition: Stable Departure Forms: Customer Survey General Discharge Information (Roderick Manzo) Departure Disposition: HOME OR SELF CARE Clinical Impression Primary Impression: Dyspnea on exertion Secondary Impressions: Lower extremity edema, Pancytopenia Referrals: Debby Frias DO (PCP/Family) Abe BRADSHAW,Roscoe Hernandez Additional Instructions: Follow-up with Dr. Fish for further evaluation of your pancytopenia. Follow-up with Dr. Fierro for further evaluation as well. Return to the emergency department for any new or worsening symptoms. (Karyna Davenport) PA/CHARTER DRIVER Co-Sign Statement Statement: ED Attending supervision documentation- [X] I saw and evaluated the patient. I have also reviewed all the pertinent lab results and diagnostic results. I agree with the findings and the plan of care as documented in the PA's/CHARTER DRIVER's documentation. Patient presents for evaluation of worsening leg edema and dyspnea. exam reveals no dsypnea at rest, bilateral leg edema. [] I have reviewed the ED Record and agree with the PA's/CHARTER DRIVER's documentation. [] Additions or exceptions (if any) to the PAs/CHARTER DRIVER's note and plan are summarized below: [] (Madelyn BRADSHAW,Og Collado) PA/CHARTER DRIVER Co-Sign Statement Statement: ED Attending supervision documentation- x I saw and evaluated the patient. I have also reviewed all the pertinent lab results and diagnostic results. I agree with the findings and the plan of care as documented in the PA's/CHARTER DRIVER's documentation. [] I have reviewed the ED Record and agree with the PA's/CHARTER DRIVER's documentation. [] Additions or exceptions (if any) to the PAs/CHARTER DRIVER's note and plan are summarized below: [] (Fantasma BRADSHAW,Mitesh) Critical Care Note Critical Care Note Critical Care Time: non-applicable (Roderick Manzo) ED Attending Observation Initial Observation Note: I have seen and personally examined KATH NEGRON on 06/22/18 at 1746. I agree with the current emergency department documentation. The disposition (admission or discharge) is uncertain at this time, he needs a period of observation for the following reason(s): The ED Nurse caring for this patient has been personally informed as to what the patient is being observed for. (Rambo HERNADEZ,Roderick)
--- NOTE | 2018-06-22 18:01 | ULTRASOUND REPORT ---
EXAMINATION: US TRIPLEX OF LOWER EXTREMITIES, BILATERAL CLINICAL INFORMATION: Bilateral lower extremity edema and swelling. COMPARISON: None TECHNIQUE: Color-flow triplex imaging with spectral analysis and compression Doppler were performed on the lower extremities. FINDINGS: Respiratory variation, normal compression and augmented flow are noted throughout the lower extremities. The visualized common femoral vein, superficial femoral vein, profunda femoral vein, popliteal vein and midcalf peroneal and posterior tibial venous segments show no evidence of deep venous thrombosis. There is a right-sided popliteal fossa Goel's cyst. It measures 2.6 x 1.0 x 0.8 cm. IMPRESSION: No evidence of deep venous thrombosis involving the bilateral lower extremities. 2.6 cm right-sided popliteal fossa Goel's cyst.
[2018-06-22] MEDS ORDERED: LOSARTAN POTASS50 M1 PO (18:07)
[2018-06-22] MEDS ORDERED: OXYCODONE HCL15 M1 PO (18:08)
--- NOTE | 2018-06-22 18:10 | RADIOLOGY REPORT ---
EXAMINATION: CHEST 1 VIEW CLINICAL INFORMATION: Shortness of breath. Edema. COMPARISON: 03/24/2017. TECHNIQUE: An AP view of the chest is provided. FINDINGS: Evaluation is limited due to the patient's extreme body habitus. The cardiac silhouette is not enlarged. The mediastinal and hilar contours are unremarkable. There are neither pleural effusions nor pneumothoraces. There are no consolidations. The osseous structures are stable. IMPRESSION: No evidence for acute disease.
[2018-06-22 18:14] LABS: ABSOLUTE BASOPHIL COUNT 0 /CUMM (0.0-0.2); ABSOLUTE EOSINOPHIL COUNT 0.1 /CUMM (0.0-0.7); ABSOLUTE GRANULOCYTE CT 2.3 /CUMM (1.4-6.5); ABSOLUTE LYMPH COUNT 1.2 /CUMM (1.2-3.4); ABSOLUTE MONOCYTE COUNT 0.3 /CUMM (0.10-0.60); BASOPHIL % 0.5 % (0.0-2.0); EOSINOPHIL % 2.2 % (0-5); HEMATOCRIT 35.9 % (42-52); MEAN CORPUSCULAR HGB CONC 32.3 G/DL (33.0-37.0); MEAN CORPUSCULAR VOLUME 86.8 FL (80.0-94.0); RBC DISTRIBUTION WIDTH 17.5 % (11.5-14.5); RED BLOOD CELL CT 4.14 /CUMM (4.70-6.10)
[2018-06-22 19:12] LABS: MEAN PLATELET VOLUME 10.4 FL (7.4-10.4); PLATELET COUNT 49 /CUMM (130-400)
[2018-06-22 21:19] VITALS: BP 178/101
== END 2018-06-22 21:21 ==
LOC: ERH 16:21
PROVIDERS: Physician Assistant
DX: R06.00 Dyspnea, unspecified (principal); R60.0 Localized edema; D61.818 Other pancytopenia; I48.91 Unspecified atrial fibrillation; I10 Essential (primary) hypertension; E66.01 Morbid (severe) obesity due to excess calories; E11.9 Type 2 diabetes mellitus without complications
CPT/HCPCS: 71045; 93005; 93010; 93970